=== PATIENT | female | born 1990 | race Two or more races ===

== ENCOUNTER 2021-11-18 11:56 | Outpatient (REF) | payer OTHER, SELFPAY ==
[2021-11-18 12:48] LABS: COVID-19 Test Negative (Negative)
== END 2021-11-18 11:57 | disposition home or self-care (01) ==
LOC: HO.LAB 11:56
PROVIDERS: Visit Provider Internal Medicine
DX: Z20.822 Contact with and (suspected) exposure to COVID-19 (principal)
CPT/HCPCS: 87635; C9803

== ENCOUNTER 2024-12-05 15:40 | Outpatient (REF) | payer SELFPAY ==
[2024-12-05 17:58] LABS: MANUAL DIFF FLAG NO
[2024-12-05 18:10] LABS: Basophils Percent Auto 0.4 % (0-2); Eosinophils Absolute Auto 0.2 X10*3/uL (0.0-0.4); Eosinophils Percent Auto 1.7 % (0-4); Hematocrit 38.9 % (37.0-47.0); Hemoglobin 12.8 g/dl (12.0-16.0); Imm Gran Abs Auto 0.04 X10*3/uL (0.00-0.03); Imm Gran Pct Auto 0.4 % (0.0-0.4); Lymphocytes Absolute Auto 2.7 X10*3/uL (1.2-4.9); Lymphocytes Percent Auto 25.9 % (20-40); Mean Corpuscular HGB Conc 32.9 g/dl (31.0-35.0); Mean Corpuscular Hemoglobin 28.8 pg (27.0-33.0); Mean Corpuscular Volume 87.6 fL (80.0-98.0); Mean Platelet Volume 10.4 fL (9.4-12.3); Monocytes Absolute Auto 0.7 X10*3/uL (0.1-1.2); Monocytes Percent Auto 6.9 % (2-11); Neutrophils Absolute Auto 6.7 x10*3/uL (2.0-8.3); Neutrophils Percent Auto 64.7 % (45-73); Platelet Count 353 X10*3/uL (160-400); Red Blood Count 4.44 X10*6/uL (4.20-5.50); White Blood Count 10.3 X10*3/uL (4.8-10.8)
[2024-12-05 18:42] LABS: Alanine Aminotransferase 39 U/L (0-31); Albumin Level 4.1 g/dL (3.5-5.0); Anion Gap 12 (12-20); Aspartate Amino Transferase 27 U/L (5-31); Bilirubin Total 0.3 mg/dL (0.0-1.0); Blood Urea Nitrogen 14 mg/dL (9-16); Carbon Dioxide 27 mmol/L (22-29); Chloride 105 mmol/L (96-108); Estimated Glomerular Filt Rate > 60; Glucose Random 102 mg/dL (60-115); Potassium 3.6 mmol/L (3.3-5.1); Sodium 140 mmol/L (135-145); Total Protein 7.8 g/dL (6.5-8.0)
[2024-12-05 18:47] LABS: Alkaline Phosphatase 34 U/L (39-117)
[2024-12-05 18:53] LABS: TSH reflex Free T4 1.91 uIU/mL (0.32-4.0)
[2024-12-06 07:48] LABS: Follicle Stimulating Hormone 0.7 mIU/mL; Lutenizing Hormone 3.3 mIU/mL; Prolactin 23.1 ng/mL
[2024-12-06 08:29] LABS: HBc Num1 0.21 S/CO (0.00-0.79); HBsAGNum1 0.47 S/CO (0.00-0.99); HIV AB/AG Nonreactive (Nonreactive); HIV Num 1 0.07 S/CO (0.00-0.99); Hepatitis A Antibody IgM 0.33 Index (0-0.79); Hepatitis B Core Antibody Nonreactive (Nonreactive); Hepatitis B Surface Antigen Negative (Negative); ~HepC Num1 0.77 S/CO (0.00-0.79); ~Hepatitis A Antibody IgM Nonreactive (Nonreactive); ~Hepatitis B Surface Antibody NONREACTIVE (Nonreactive); ~Hepatitis C Antibody Nonreactive (Nonreactive)
[2024-12-06 08:38] LABS: Syphilis Screen Nonreactive (Nonreactive)
[2024-12-06 11:49] LABS: CT PCR NOT DETECTED (Not Detect.); NG PCR NOT DETECTED (Not Detect.)
[2024-12-06 15:00] LABS: Bacterial Vaginosis PCR POSITIVE (Negative); Candida Group PCR NOT DETECTED (Not Detect); Candida glab krusei PCR NOT DETECTED (Not Detect); Trichomonas vaginalis PCR NOT DETECTED (Not Detect)
== END 2024-12-05 15:41 | disposition home or self-care (01) ==
LOC: HO.HHCLNP 15:40
PROVIDERS: Visit Provider Internal Medicine
DX: N80.9 Endometriosis, unspecified (principal); N91.2 Amenorrhea, unspecified; N97.0 Female infertility associated with anovulation
CPT/HCPCS: 36415; 80053; 81515; 83001; 83002; 84146; 84443; 85025; 86704; 86706; 86709; 86780; 86803; 87340; 87389; 87491; 87591

== ENCOUNTER 2024-12-20 15:38 | Outpatient (REF) | payer MEDICAID, OTHER, SELFPAY ==
--- NOTE | ~2024-12-20 | US_ITS ---
EXAMINATION: US PELVIS TRANSABDOMINAL AND TRANSVAGINAL HISTORY: amenorrhea/hx endometriosis COMPARISON: There are no prior studies for comparison. TECHNIQUE: Transabdominal and endovaginal real-time 2D chilel-scale ultrasound was performed. FINDINGS: Uterus: The uterus is normal in size, measuring 7.1 x 3.5 x 3.9 cm. Myometrium has a normal echotexture. No fibroids are identified. There are nabothian cysts in the cervix. Endometrium: The endometrial stripe measures 3 mm in thickness. Right ovary: The right ovary measures 1.9 x 1.0 x 1.4 cm. The right ovary is normal in size and echotexture. Left ovary: The left ovary measures 3.7 x 3.1 x 2.1 cm. There is a 3.0 x 2.9 x 1.7 cm left ovarian cyst. Pelvic fluid: There is a small amount of free fluid in the cul-de-sac.. US/US pelvic and transvaginal IMPRESSION: 3.0 x 2.9 x 1.7 cm left ovarian cyst. Otherwise unremarkable pelvic ultrasound. Electronically signed by: Kenn Rodriguez MD 12/21/2024 07:10 AM EDT
--- OUTSIDE RECORDS SUMMARY | 2024-12-20 18:56 | XMS_ITS | Encounter Summary ---
Author Organization [employer] Address [address] [place] [address] Care Team Providers Care Flying I Instructor Name Role Phone Unavailable Primary Care Provider Unavailabl e Encounter Details Date Type Department Care Team (Late st Contact Info) Description 12/06/2024 Telephone [facility] [address] [place], [place] [phone] Jazmín oNgueira MD [address] [place], [place] [phone] Social History Tobacco Use Types Packs/Day Years Used Date Smoking Tobacco: Never Passive Smoke Exposure: Never Smokeless Tobacco: Never Comments Unknown Sex and Gender Information Value Date Recorded Sex Assigned at Female 07/27/2023 10:54 AM EDT Legal Sex Female 10:53 AM EDT Gender Identity Female 07/27/2023 10:54 AM EDT Sexual Orientation Straight 07/27/2023 10 :54 AM EDT documented as of this encounter Miscellaneous Notes * Telephone Encounter - Lucille Reid RN - 12/06/2024 5:46 PM EST Telephone call to the pt regarding the following message from Dr. Nogueira : Vaginal swab from yesterday show BV. Since patient has had amenorrhea for some time now, please tell her that I will treat BV this time to see if he has anything to do with recurrent amenorrheic episodes. Tell her that this is not a STD, that it sometimes happens when the vaginal ph is altered by different conditions (abs use, UTIs, spermicide or vaginal douche use etc). I will follow- up with her at her upcoming appointment. Tell her that some of her hormone levels are abnormal as well, those that are related with ovulation so they are most likely the reason why she is probably not ovulating. Tell her that I will refer her to supervisor boarding for further evaluation and I will follow-up with her at her next visit. Pt verbalized understanding ,and agrees with the plan. documented in this encounter Plan of Treatment Upcoming Encounters Date Type Department Care Team (Late st Contact Info) Description 02/28/2025 9:15 AM EDT Office Visit [facility] [address] [place] [phone] Jazmín Nogueira MD [address] [place] [address] documented as of this encounter Visit Diagnoses Not on filedocumented in this encounter
--- OUTSIDE RECORDS SUMMARY | 2024-12-20 18:56 | XMS_ITS | Clinical Summary ---
Author Organization [employer] Address [address] [place] [address] Care Team Providers Care Acid Tender Name Role Phone Jazmín Nogueira MD Primary Care Provider + Allergies No known active allergies Medications multivitamin () 27-0.8 MG tablet Take 1 tablet by mouth Once per day. 30 tablet 11 12/05/2024 Active metroNIDAZOLE (Flagyl) 500 MG tablet Take 1 tablet (500 mg) by mouth 2 times daily for 7 days. 14 tablet 12/06/2024 Active Problems Problem Noted Date Diagnosed Date Endometriosis 12/05/2024 Assessment & Plan (12/05/2024 3:10 PM EST): Unclear diagnosis, patient never had laparoscopy. She will try to obtain records from previous treatment and follow-up with [employer]. Order CBC and labs and follow-up with your PCP DUB (dysfunctional uterine bleeding) 12/05/2024 Amenorrhea 12/05/2024 Assessment & Plan (12/05/2024 3:09 PM EST): test is negative. Space unclear if related to PCOS, she does not have any visualizing fissures. It could be related to endometriosis. Order labs and pelvic ultrasound and follow-up with a new PCP. I will obtain Pap smear report from dentistry done last month. Infertility associated with anovulation 12/05/19 Assessment & Plan (12/05/2024 3:10 PM EST): Ordered labs and pelvic ultrasound, may need referral to [employer]. Needs to follow-up with new PCP first Encounters Date Type Department Care Team Description 12/06/2024 Telephone [facility] [address] [place], [place] [phone] Jazmín Nogueira MD 12/06/2024 Orders Only [facility] [address] [place] [phone] Jazmín Nogueira MD Amenorrhea (Primary Dx); BV (bacterial vaginosis) 12/05/2024 2:40 PM EST Office Visit [facility] [address] [place] [phone] Jazmín Nogueira MD Endometriosis (Primary Dx); Amenorrhea; Infertility associated with anovulation from Last 3 Months Social History Tobacco Use Types Packs/Day Years Used Date Smoking Tobacco: Never Passive Smoke Exposure: Never Smokeless Tobacco: Never Tobacco Cessation:Counseling Given: Not Answered Comments Unknown Sex and Gender Information Value Date Recorded Sex Assigned at Female 07/27/2023 10:54 AM EDT Legal Sex Female 10:53 AM EDT Gender Identity Female 07/27/2023 10:54 AM EDT Sexual Orientation Straight 07/27/2023 10 :54 AM EDT Last Filed Vital Signs Vital Sign Reading Time Taken Comments Blood Pressure 122/83 12/05/2024 2:31 PM EST Pulse 73 12/05/2024 2:31 PM EST Temperature 36.7 ??C (98 ??F) 12/05/2024 2:31 PM EST Respiratory Rate 16 12/05/2024 2:31 PM EST Oxygen Saturation - - Inhaled Oxygen Concentration - - Weight 64.4 kg (142 lb) 12/05/2024 2:31 PM EST Height 142.2 cm (4' 8 ) 12/05/2024 2:31 PM EST Body Mass Index 31.84 12/05/2024 2:31 PM EST Plan of Treatment Upcoming Encounters Date Type Department Care Team (Late st Contact Info) Description 02/28/2025 9:15 AM EDT Office Visit [facility] [address] [place] [phone] Jazmín Nogueira MD [address] [place] [phone] Health Maintenance Due Date Last Done Comments Depression Screening 1992 SDOH Screening 1992 Alcohol/Substance Use Screening 2004 DTaP/Tdap/Td Vaccines (1 - Tdap) 2011 Hepatitis B Vaccines (1 of 3 - 19+ 3-dose series) 2011 Pap Smear 2013 Cervical Cancer Screening 2022 HPV/Cotest 2022 COVID-19 Vaccine (1 - 2023-2 5 season) 2024 Influenza Vaccine (#1) 2024 Family Planning (PISQ) 12/05/2025 12/05/2024 Tobacco Screening 12/05/2025 12/05/2024 Zoster Vaccines (1 of 2) 2042 RSV Patients and Pa tients Aged 60 years or older (1 - 1-dose 75+ series) 2067 HIV Screening Completed 12/05/2024 Hepatitis C Screening Completed 12/05/2024 HIB Vaccines Aged Out No longer eligi ble based on patient's age to complete this topic HPV Vaccines Aged Out No longer eligi ble based on patient's age to complete this topic Hepatitis A Vaccines Aged Out No long er eligible based on patient's age to complete this topic IPV Vaccines Aged Out No longer eligi ble based on patient's age to complete this topic Meningococcal Vaccine Aged Out No domenico christen eligible based on patient's age to complete this topic Pneumococcal Vaccine: Pediat rics (0 to 5 Years) and At-Risk Patients (6 to 49) Years) Aged Out No longer elig ible based on patient's age to complete this topic RSV under 20 months Aged Out No longe r eligible based on patient's age to complete this topic Rotavirus Vaccines Aged Out No longer eligible based on patient's age to complete this topic Procedures Procedure Name Priority Date/Time Associated Diagnosis Comments LH Routine 12/05/2024 3:44 PM EST Amenorrhea Infertility associated with anovulation FSH Routine 12/05/2024 3:44 PM EST Amenorrhea Infertility associated with anovulation PROLACTIN Routine 12/05/2024 3:44 PM EST Amenorrhea Infertility associated with anovulation TSH W/REFLEX TO FT4 Routine 12/05/2024 3 :44 PM EST Amenorrhea Infertility associated with anovulation SYPHILIS SCREEN Routine 12/05/2024 3:44 PM EST Infertility associated with anovulation HEPATITIS PANEL, GENERAL Routine 12/05/2024 3:44 PM EST Amenorrhea HIV 1/2 ANTIGEN/ANTIBODY, FOURTH GENERATION W/RFL Routine 12/05/2024 3:44 PM EST Amenorrhea COMPREHENSIVE METABOLIC PANEL Routine 12/05/2024 3:44 PM EST Endometriosis Amenorrhea CBC WITH AUTO DIFFERENTIAL Routine 12/05/2024 3:44 PM EST Endometriosis CHLAMYDIA/N. GONORRHOEAE RNA, TMA, UROGENITAL Routine 12/05/2024 3:05 PM EST Amenorrhea BACTERIAL VAGINOSIS PANEL Routine 12/05/2024 3:05 PM EST Amenorrhea POCT , URINE Routine 12/05/2024 3:01 PM EST Amenorrhea from Last 3 Months Results * Syphilis Screen (12/05/2024 3:44 PM EST) Syphilis Screen Nonreactive Nonreactive [facility] Blood 12/05/2024 3:44 PM EST 12/05/2024 5:51 PM EST us Jazmín Nogueira MD LAB BLOOD ORDERABLES Fin al Result [facility] [address] [place] [phone] * TSH with Reflex to Free T4 (12/05/2024 3:44 PM EST) TSH reflex Free T4 1.91 0.32 - 4.0 uIU/mL [facility] Blood 12/05/2024 3:44 PM EST 12/05/2024 5:51 PM EST Jazmín Nogueira MD LAB BLOOD ORDERABLES Fin al Result Performing Organization Address [facility] Co de Phone Number [facility] [address] [place] [phone] * Hepatitis Panel, General (12/05/2024 3:44 PM EST) [facility] Hepatitis A IgM Nonreactive Nonreactive [facility] Comment:IgM antibodies to MUSTAFA V not detected; does not exclude earlyacute or recovered HAV infection. ~Hepatitis B Surface Antibody NONREACTIVE Nonreactive [facility] Comment:Nonreactive: < 8.00 mIU/mL Hepatitis B Core Antibody Nonreactive Nonreactive [facility] Hepatitis C Antibody Nonreactive Nonreactive [facility] Comment:Antibodies to HCV no t detected; does not exclude early acuteHCV infection. Hepatitis B Surface Ag Negative Negative [facility] Blood 12/05/2024 3:44 PM EST 12/05/2024 5:51 PM EST Jazmín Nogueira MD LAB BLOOD ORDERABLES Fin al Result Performing Organization Address [facility] Co de Phone Number [facility] [address] [place] [phone] * (ABNORMAL) CBC auto differential (12/05/2024 3:44 PM EST) [facility] White Blood Count 10.3 4.8 - 10.8 X10*3/uL [facility] Red Blood Count 4.44 4.20 - 5.50 X10*6/uL [facility] Hemoglobin 12.8 12.0 - 16.0 g/dl [facility] Hematocrit 38.9 37.0 - 47.0 % [facility] Mean Corpuscular Volume 87.6 80.0 - 98.0 fL [facility] Mean Corpuscular Hemoglobin 28.8 27.0 - 33.0 pg [facility] Mean Corpuscular HGB Conc 32.9 31.0 - 35.0 g/dl [facility] Red Cell Distribution Width 13.0 11.0 - 16.0 % [facility] Platelet Count 353 160 - 400 X10*3/uL [facility] Mean Platelet Volume 10.4 9.4 - 12.3 fL [facility] Neutrophils Percent Auto 64.7 45 - 73 % [facility] Imm Gran Pct Auto 0.4 0.0 - 0.4 % [facility] Lymphocytes Percent Auto 25.9 20 - 40 % [facility] Monocytes Percent Auto 6.9 2 - 11 % [facility] Eosinophils Percent Auto 1.7 0 - 4 % [facility] Basophils Percent Auto 0.4 0 - 2 % [facility] NRBC Pct Auto 0.0 0.0 - 0.2 /100WBC [facility] Neutrophils Absolute Auto 6.7 2.0 - 8.3 x10*3/uL [facility] Imm Gran Abs Auto 0.04(H) 0.00 - 0.03 X10*3/uL [facility] Lymphocytes Absolute Auto 2.7 1.2 - 4.9 X10*3/uL [facility] Monocytes Absolute Auto 0.7 0.1 - 1.2 X10*3/uL [facility] Eosinophils Absolute Auto 0.2 0.0 - 0.4 X10*3/uL [facility] Basophils Absolute Auto 0.0 0.0 - 0.2 X10*3/uL [facility] NRBC Abs Auto 0.000 0.0 - 0.012 X10*3/uL [facility] Blood Venous blood specimen / Unknown 12/05/2024 3:44 PM EST 12/05/2024 5:51 PM EST us Jazmín Nogueira MD LAB BLOOD ORDERABLES Fin al Result [facility] [address] [place] [phone] * Prolactin (12/05/2024 3:44 PM EST) Prolactin 23.1 ng/mL [facility] Comment:Reference Range Fema les Non- 3.0-30.0 10.0-209.0 Postmenopausal 2.0-20.0THIS TEST WAS PERFORMED AT:[employer] [address] [employer] [place] [phone] ELMORE MD Blood Venous blood specimen / Unknown 12/05/2024 3:44 PM EST 12/05/2024 5:51 PM EST Jazmín Nogueira MD LAB BLOOD ORDERABLES Fin al Result Performing Organization Address [facility]/ZIP Co de Phone Number [facility] [address] [place] [phone] * HIV-1/2 Antigen and Antibodies, Fourth Generation, with Reflexes (12/05/2024 3:44 PM EST) HIV AB/AG Nonreactive Nonreactive [facility] Comment:HIV-1 p24 Ag and/or HIV-1/HIV-2 Ab not detected.A test result that is nonreactive does not exclude thepossibility of exposure to or infection with HIV-1 and/orHIV-2. Nonreactive results in this assay for individualswith prior exposure to HIV-1 and/or HIV-2 may be due toantigen and antibody levels that are below the limit ofdetection of this assay.[facility] [employer] HIV Ag/Ab Combo assay result andsupplemental assay results should be interpreted inconjunction with the patient's clinical presentation,history and other laboratory results. If the results areinconsistent with clinical evidence, additional testing issuggested to confirm the result. Blood Venous blood specimen / Unknown 12/05/2024 3:44 PM EST 12/05/2024 5:51 PM EST us Jazmín Nogueira MD LAB BLOOD ORDERABLES Fin al Result [facility] [address] [place] [phone] * LH (12/05/2024 3:44 PM EST) Lutenizing Hormone 3.3 mIU/mL [facility] Comment:Reference Range Foll icular Phase 1.9-12.5 Mid-Cycle Peak 8.7-76.3 Luteal Phase 0.5-16.9 Postmenopausal 10.0-54.7THIS TEST WAS PERFORMED AT:[facility] [address] [phone] ELMORE MD Blood Venous blood specimen / Unknown 12/05/2024 3:44 PM EST 12/05/2024 5:51 PM EST Jazmín Nogueira MD LAB BLOOD ORDERABLES Fin al Result Performing Organization Address [facility] Co ma Phone Number [facility] [address] [place] [phone] * (ABNORMAL) FSH (12/05/2024 3:44 PM EST) Follicle Stimulating Hormone 0.7(A) mIU/mL [facility] Comment:Reference Range Foll icular Phase 2.5-10.2 Mid-cycle Peak 3.1-17.7 Luteal Phase 1.5- 9.1 Postmenopausal 23.0-116.3THIS TEST WAS PERFORMED AT:[facility] [address] [phone] ELMORE MD Blood Venous blood specimen / Unknown 12/05/2024 3:44 PM EST 12/05/2024 5:51 PM EST Jazmín Nogueira MD LAB BLOOD ORDERABLES Fin al Result Performing Organization Address [facility]/ZIP Co de Phone Number [facility] [address] [place] [phone] * (ABNORMAL) Comprehensive Metabolic Panel (12/05/2024 3:44 PM EST) Sodium 140 135 - 145 mmol/L [facility] Potassium 3.6 3.3 - 5.1 mmol/L [facility] Chloride 105 96 - 108 mmol/L [facility] Carbon Dioxide 27 22 - 29 mmol/L [facility] Anion Gap 12 12 - 20 [facility] Urea Nitrogen (BUN) 14 9 - 16 mg/dL [facility] Creatinine, Serum 0.66 0.5 - 1.4 mg/dL [facility] Estimated Glomerular Filt Rate >60 [facility] Comment:Chronic Kidney Disea se: Estimated GFR < 60 mL/min/[id number] Kidney Disease: Estimated GFR < 15 mL/min/1.73m2 Glucose 102 60 - 115 mg/dL [facility] Calcium 9.0 8.4 - 10.2 mg/dL [facility] Bilirubin, Total 0.3 0.0 - 1.0 mg/dL [facility] Aspartate Amino Transferase 27 5 - 31 U/L [facility] Alanine Aminotransferase 39(H) 0 - 31 U/L [facility] Total Protein 7.8 6.5 - 8.0 g/dL [facility] Albumin Level 4.1 3.5 - 5.0 g/dL [facility] Alkaline Phosphatase 34(L) 39 - 117 U/L [facility] Blood Venous blood specimen / Unknown 12/05/2024 3:44 PM EST 12/05/2024 5:51 PM EST us Jazmín Nogueira MD LAB BLOOD ORDERABLES Fin al Result [facility] [address] [place] [phone] * (ABNORMAL) Bacterial Vaginosis (12/05/2024 3:05 PM EST) TRICHOMONAS VAGINALIS DETECTION BY PCR NOT DETECTED Not Detect [facility] BACTERIAL VAGINOSIS DETECTION BY PCR POSITIVE(A) Negative [facility] Comment:The BV organism targ ets of the Xpert Xpress MVP test can becommensal in women; Xpert Xpress MVP positive results forbacterial vaginosis should be considered in conjunction withother clinical and patient information to determine thedisease status. Organisms that are not detected by the XpertXpress MVP test have also been reported to be associatedwith BV and aerobic vaginitis.The Xpert Xpress MVP test performance has not been evaluatedin patients under the age of 14. VIRGINIE GROUP DETECTION BY PCR NOT DETECTED Not Detect [facility] Virginie glab krusei PCR NOT DETECTED Not Detect [facility] Swab Vaginal structure / Unknown 12/05/2024 3:05 PM EST 12/05/2024 4:22 PM EST us Jazmín Nogueira MD LAB MICROBIOLOGY - GENER AL ORDERABLES Final Result [facility] [address] [place] [phone] * Chlamydia/N. Gonorrhoeae RNA, TMA, Urogenitial (12/05/2024 3:05 PM EST) CT PCR NOT DETECTED Not Detect. [facility] Comment:A not detected test result does not exclude the possibilityof infection because test results can be affected byimproper specimen collection, concurrent antibiotic therapy,or the number of organisms in the specimen which may bebelow the sensitivity of the test. As with many diagnostictests, results from the Xpert CT/NG assay should beinterpreted in conjunction with other laboratory andclinical data available to the clinician.Xpert CT/NG performance has not been evaluated in patientsless than 14 years of age. The assay should not be used forthe evaluationof suspected sexual abuse or for other medico-legalindications. Additional testing is recommended in anycircumstance when false positive or false negative resultscould lead to adverse medical, social or psychologicalconsequences. NG PCR NOT DETECTED Not Detect. [facility] Comment:A not detected test result does not exclude the possibilityof infection because test results can be affected byimproper specimen collection, concurrent antibiotic therapy,or the number of organisms in the specimen which may bebelow the sensitivity of the test. As with many diagnostictests, results from the Xpert CT/NG assay should beinterpreted in conjunction with other laboratory andclinical data available to the clinician.Xpert CT/NG performance has not been evaluated in patientsless than 14 years of age. The assay should not be used forthe evaluationof suspected sexual abuse or for other medico-legalindications. Additional testing is recommended in anycircumstance when false positive or false negative resultscould lead to adverse medical, social or psychologicalconsequences. Swab (Vaginal Swab) 12/05/2024 3:05 PM EST 12/05/2024 4:22 PM EST Narrative [facility] - 12/06/2024 11:49 AM EST Vaginal Jazmín Nogueira MD LAB MICROBIOLOGY - GENER AL ORDERABLES Final Result Performing Organization Address City/State/[facility] Co de Phone Number [facility] [address] [place] [phone] * POCT , urine manually resulted (12/05/2024 3:01 PM EST) Preg Test, Ur Negative Negative, Indeterminate, None Detected, Invalid, Specimen unsatisfactory for evaluation, Weakly Positive Urine 12/05/2024 3:01 PM EST Jazmín Nogueira MD POINT OF CARE TEST ENTER /EDIT ORDERABLES Final Result from Last 3 Months Insurance [employer] [facility]SN FULL DENTAL - HSN FULL (MEDICAID) D[facility] MEDICAID LIMITED ADULT Care Teams Acid Tender Relationship Specialty Start Date End Date Jazmín Nogueira MD [address] [place] [phone] PCP - General Internal Medicine 12/09/24
--- OUTSIDE RECORDS SUMMARY | 2024-12-20 18:57 | XMS_ITS | Encounter Summary ---
Author Organization [employer] Address [address] [facility] [address] [place] [address] Care Team Providers Care Electric Powerline Examiner Name Role Phone Unavailable Primary Care Provider Unavailabl e Reason for Referral * Consultation (Routine) - Authorized Specialty Diagnoses / Procedures Referred By Contadali t Referred To Contact Obstetrics and Gynecology Diagnoses Amenorrhea Jazmín Nogueira MD [address] [place] [address] Phone: tel: fax: [facility] [address] [place], [place] Phone: tel: fax: Referral ID Status Reason Start Date Expiration Date Visits Requested Visits Authorized [id number] Authorized Specialty Services Required 12/06/2024 12/06/2025 1 1 Encounter Details Date Type Department Care Team (Late st Contact Info) Description 12/06/2024 Orders Only [facility] [address] [place] [phone] Jazmín Nogueira MD [address] [place], [place] [phone] Amenorrhea (Primary Dx); BV (bacterial vaginosis) Social History Tobacco Use Types Packs/Day Years Used Date Smoking Tobacco: Never Passive Smoke Exposure: Never Smokeless Tobacco: Never Comments Unknown Sex and Gender Information Value Date Recorded Sex Assigned at Female 07/27/2023 10:54 AM EDT Legal Sex Female 10:53 AM EDT Gender Identity Female 07/27/2023 10:54 AM EDT Sexual Orientation Straight 07/27/2023 10 :54 AM EDT documented as of this encounter Progress Notes * Jazmín Nogueira MD - 12/06/2024 4:38 PM EST 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, 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, 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[facility] documented in this encounter Plan of Treatment Upcoming Encounters Date Type Department Care Team (Late st Contact Info) Description 02/28/2025 9:15 AM EDT Office Visit [facility] [address] [place] [address] Jazmín Nogueira MD [address] [place] [phone] Scheduled Referrals Name Type Priority Associated Diagnoses Order Schedule Referral to Gynecology Outpatient Referral Routine Amenorrhea Expected: 12/06/2024 (Approximate), Expires: 12/06/2025 documented as of this encounter Visit Diagnoses Diagnosis Amenorrhea- Primary Absence of menstruation BV (bacterial vaginosis) Unspecified vaginitis and vulvovaginitis documented in this encounter
--- OUTSIDE RECORDS SUMMARY | 2024-12-20 18:57 | XMS_ITS | Encounter Summary ---
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 Scientist Name Role Phone Unavailable Primary Care Provider Unavailabl e Reason for Referral * Imaging (Routine) - Closed Specialty Diagnoses / Procedures Referred By Contac t Referred To Contact Radiology Diagnoses Endometriosis Amenorrhea Procedures US Pelvis Transvaginal Jazmín Nogueira MD [address] [place] [address] Phone: tel: fax: [address] Phone: tel: fax: Referral ID Status Reason Start Date Expiration Date Visits Re quested Visits Authorized [id number] Closed 12/05/2024 12/05/2025 1 1 * Imaging (Routine) - Closed Specialty Diagnoses / Procedures Referred By Contac t Referred To Contact Radiology Diagnoses Endometriosis Amenorrhea Procedures Us Pelvis complete Jazmín Nogueira MD [address] [place] [address] Phone: tel: fax: [address] Phone: tel: fax: Referral ID Status Reason Start Date Expiration Date Visits Re quested Visits Authorized [id number] Closed 12/05/2024 12/05/2025 1 1 Reason for Visit * Reason Comments Menstrual Problem Encounter Details Date Type Department Care Team (Latest Contact Info) Description 12/05/2024 2:40 PM EST Office Visit [facility] [address] [place] [address] Jazmín Nogueira MD [address] [place] [address] Endometriosis (Primary Dx); Amenorrhea; Infertility associated with anovulation Social History Tobacco Use Types Packs/Day Years [...] AM EDT documented as of this encounter Last Filed Vital Signs Vital Sign Reading [...] Mass Index 31.84 12/05/2024 2:31 PM EST documented in this encounter Progress Notes * Jazmín Nogueira MD - 12/05/2024 2:40 PM EST SUBJECTIVE: Jael Gates is a 34 y.o. 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 Denies recent illness, injury, or hospitalization. Patient here for new patient visit, she is concerned about amenorrhea for the past 3 months. PMHx: Endometriosis x 10+ y (no hx laparoscopy?), sp OCPs + other rx until 2019. She had had regular monthly menstrual bleedings since, until 06/2024. PSHx: None. FamHx: Father had ESRD/. Mother of liver Ca and DM. Has several siblings with hx DM. 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 Lives with her and her sister. She completed 8th grade then dropped out. Acute Concerns: Patient concerned regarding absence of menstrual bleeding since . She has occasional breast tenderness and pelvic pain that she relates to menstrual bleeding but has not had any recently. She denies vaginal discharge, regular pelvic pain, vaginal spotting, facial her or galactorrhea. She had PAP smear (Tapestry) on Oct was reportedly normal. She has history of endometriosis until 2 oh any 20 when she received treatment for x 6 months and started having irregular menstrual bleedings, last one June 2024. She has been with the same male partner for the past 14 years, did not use control and she has not gotten . She would like to get . Social History Social History Narrative Not on file Patient Active Problem List Diagnosis Endometriosis DUB (dysfunctional uterine bleeding) Amenorrhea Infertility associated with anovulation No family history on file. Review of Systems Constitutional: Negative for chills, fatigue and fever. HENT: Negative for congestion, ear pain, nosebleeds, rhinorrhea, sinus pressure, sore throat and trouble swallowing. Eyes: Negative for pain and discharge. Respiratory: Negative for cough, chest tightness and shortness of breath. Cardiovascular: Negative for chest pain, palpitations and leg swelling. Gastrointestinal: Negative for abdominal pain, blood in stool, constipation, diarrhea and nausea. Endocrine: Negative for polydipsia and polyuria. Genitourinary: Positive for menstrual problem. Negative for dysuria, frequency, genital sores, pelvic pain and vaginal discharge. Musculoskeletal: Negative for back pain and neck pain. Skin: Negative for rash. Allergic/Immunologic: Negative for environmental allergies. Neurological: Negative for dizziness, seizures, weakness, light-headedness and headaches. Hematological: Negative for adenopathy. Psychiatric/Behavioral: Negative for agitation, behavioral problems, self-injury and suicidal ideas. OBJECTIVE: Vitals: 12/05/24 1431 BP: 122/83 Pulse: 73 Resp: 16 Temp: 98 ??F (36.7 ??C) Physical Exam HENT: Right Ear: Tympanic membrane and ear canal normal. Left Ear: Tympanic membrane and ear canal normal. Mouth/Throat: Mouth: Mucous membranes are moist. Pharynx: No oropharyngeal exudate or posterior oropharyngeal erythema. Eyes: Pupils: Pupils are equal, round, and reactive to light. Cardiovascular: Rate and Rhythm: Regular rhythm. Pulses: Normal pulses. Heart sounds: Normal heart sounds. No murmur heard. Pulmonary: Breath sounds: Normal breath sounds. Abdominal: General: Bowel sounds are normal. Palpations: Abdomen is soft. Tenderness: There is no abdominal tenderness. Musculoskeletal: General: Normal range of motion. Cervical back: Neck supple. Skin: General: Skin is warm. Neurological: General: No focal deficit present. Mental Status: She is alert and oriented to person, place, and time. Psychiatric: Mood and Affect: Mood normal. Behavior: Behavior normal. Office Visit on 12/05/2024 Component Date Value Ref Range Status Preg Test, Ur 12/05/2024 Negative Negative, Indeterminate, None Detected, Invalid, Specimen unsatisfactory for evaluation, Weakly Positive Final Problem List Items Addressed This Visit Endometriosis - Primary Unclear diagnosis, patient never had laparoscopy. She will try to obtain records from previous treatment and follow-up with NURSE MONITORING. Order CBC and labs and follow-up with your PCP Relevant Orders CBC auto differential Comprehensive Metabolic Panel Us Pelvis complete US Pelvis Transvaginal Amenorrhea test is negative. Space unclear if related to PCOS, she does not have any visualizing fissures. It could be related to endometriosis. Order labs and pelvic ultrasound and follow-up with a new PCP. I will obtain Pap smear report from dentistry done last month. Relevant Orders POCT , urine manually resulted (Completed) Bacterial Vaginosis Chlamydia/N. Gonorrhoeae RNA, TMA, Urogenitial Bacterial Vaginosis Chlamydia/N. Gonorrhoeae RNA, TMA, Urogenitial Comprehensive Metabolic Panel HIV-1/2 Antigen and Antibodies, Fourth Generation, with Reflexes Hepatitis Panel, General TSH with Reflex to Free T4 Prolactin FSH LH Us Pelvis complete US Pelvis Transvaginal Infertility associated with anovulation Ordered labs and pelvic ultrasound, may need referral to NURSE MONITORING. Needs to follow-up with new PCP first Relevant Orders Syphilis Screen TSH with Reflex to Free T4 Prolactin FSH LH Follow Up: No current outpatient medications on file prior to visit. No current facility-administered medications on file prior to visit. documented in this encounter Miscellaneous Notes * Assessment & Plan Note - Jazmín Nogueira MD - 12/05/2024 3:10 PM EST Associated Problem(s): Endometriosis Unclear diagnosis, patient never had laparoscopy. She will try to obtain records from previous treatment and follow-up with NURSE MONITORING. Order CBC and labs and follow-up with your PCP * Assessment & Plan Note - Jazmín Nogueira MD - 12/05/2024 3:10 PM EST Associated Problem(s): Infertility associated with anovulation Ordered labs and pelvic ultrasound, may need referral to NURSE MONITORING. Needs to follow-up with new PCP first * Assessment & Plan Note - Jazmín Nogueira MD - 12/05/2024 3:09 PM EST Associated Problem(s): Amenorrhea test is negative. Space unclear if related to PCOS, she does not have any visualizing fissures. It could be related to endometriosis. Order labs and pelvic ultrasound and follow-up with a new PCP. I will obtain Pap smear report from dentistry done last month. * Result Encounter Note - Jazmín Nogueira MD - 12/05/2024 2:40 PM EST Vaginal swab from yesterday show BV. Since [...] use etc). I will follow- up with herat her upcoming appointment. Tell her that some of her hormone levels are abnormal as well, those that are related with ovulation so they are most likely the reason why she is probably not ovulating.Tell her that I will refer her to devulcanizer operator for further evaluation and I will follow-up with herat her next visit documented in this encounter Plan of Treatment Upcoming Encounters Date Type Department Care Team (Late st Contact Info) Description 02/28/2025 9:15 AM EDT Office Visit [facility] [address] [place] [address] Jazmín Nogueira MD [address] [place] [address] Scheduled Orders Name Type Priority Associated Diagnoses Orde r Schedule Chlamydia/N. Gonorrhoeae RNA, TMA, Urogenitial Microbiology Routine Amenorrhea Ordered: 12/05/2024 Bacterial Vaginosis Microbiology Routine Amenorrhea Expected: 12/05/2024 (Approximate), Expires: 12/05/2025 Us Pelvis complete Imaging Routine Endometriosis Amenorrhea Expected: 12/05/2024 (Approximate), Expires: 12/05/2025 US Pelvis Transvaginal Imaging Routine Endometriosis Amenorrhea Expected: 12/05/2024 (Approximate), Expires: 12/05/2025 documented as of this encounter Procedures Procedure Name Priority Date/Time Associated Diagnosis Comments SYPHILIS SCREEN Routine 12/05/2024 3:44 PM EST Infertility associated with anovulation TSH W/REFLEX TO FT4 Routine 12/05/2024 3 :44 PM EST Amenorrhea Infertility associated with anovulation HEPATITIS PANEL, GENERAL Routine 12/05/2024 3:44 PM EST Amenorrhea CBC WITH AUTO DIFFERENTIAL Routine 12/05/2024 3:44 PM EST Endometriosis PROLACTIN Routine 12/05/2024 3:44 PM EST Amenorrhea Infertility associated with anovulation HIV 1/2 ANTIGEN/ANTIBODY, FOURTH GENERATION W/RFL Routine 12/05/2024 3:44 PM EST Amenorrhea LH Routine 12/05/2024 3:44 PM EST Amenorrhea Infertility associated with anovulation FSH Routine 12/05/2024 3:44 PM EST Amenorrhea Infertility associated with anovulation COMPREHENSIVE METABOLIC PANEL Routine 12/05/2024 3:44 PM EST Endometriosis Amenorrhea BACTERIAL VAGINOSIS PANEL Routine 12/05/2024 3:05 PM EST Amenorrhea CHLAMYDIA/N. GONORRHOEAE RNA, TMA, UROGENITAL Routine 12/05/2024 3:05 PM EST Amenorrhea POCT , URINE Routine 12/05/2024 3:01 PM EST Amenorrhea documented in this encounter Results * LH (12/05/2024 3:44 PM EST) Lutenizing Hormone 3.3 mIU/mL [facility] Comment:Reference Range Fol licular Phase 1.9-12.5 Mid-Cycle Peak 8.7-76.3 Luteal Phase 0.5-16.9 Postmenopausal 10.0-54.7THIS TEST WAS PERFORMED AT:[employer] [address] [id number] ELMORE MD Blood Venous blood specimen / Unknown 12/05/2024 3:44 PM EST 12/05/2024 5:51 PM EST us Jazmín Nogueira MD LAB BLOOD ORDERABLES Fin al Result [facility] [address] [place] [phone] * (ABNORMAL) FSH (12/05/2024 3:44 PM EST) Follicle Stimulating Hormone 0.7(A) mIU/mL [facility] Comment:Reference Range Foll icular Phase 2.5-10.2 Mid-cycle Peak 3.1-17.7 Luteal Phase 1.5- 9.1 Postmenopausal 23.0-116.3THIS TEST WAS PERFORMED AT:[employer] [address] [id number] ELMORE MD Blood Venous blood specimen / Unknown 12/05/2024 3:44 PM EST 12/05/2024 5:51 PM EST Jazmín Nogueira MD LAB BLOOD ORDERABLES Fin al Result Performing Organization Address [facility] Co de Phone Number [facility] [address] [place] [phone] * Prolactin (12/05/2024 3:44 PM EST) Prolactin 23.1 ng/mL [facility] Comment:Reference Range Fema les Non- 3.0-30.0 10.0-209.0 Postmenopausal 2.0-20.0THIS TEST WAS PERFORMED AT:[employer] [address] [id number] ELMORE MD Blood Venous blood specimen / Unknown 12/05/2024 3:44 PM EST 12/05/2024 5:51 PM EST Jazmín Nogueira MD LAB BLOOD ORDERABLES Fin al Result Performing Organization Address [facility] de Phone Number [facility] [address] [place] [phone] * TSH with Reflex to Free T4 (12/05/2024 3:44 PM EST) TSH reflex Free T4 1.91 0.32 - 4.0 uIU/mL [facility] Blood 12/05/2024 3:44 PM EST 12/05/2024 5:51 PM EST Jazmín Nogueira MD LAB BLOOD ORDERABLES Fin al Result Performing Organization Address [facility] [address] [facility] Co de Phone Number [facility] [address] [place] [phone] * Syphilis Screen (12/05/2024 3:44 PM EST) Syphilis Screen Nonreactive Nonreactive [facility] Blood 12/05/2024 3:44 PM EST 12/05/2024 5:51 PM EST Jazmín Nogueira MD LAB BLOOD ORDERABLES Fin al Result Performing Organization Address [facility] [address] [facility] Co de Phone Number [facility] [address] [place] [phone] * Hepatitis Panel, General (12/05/2024 3:44 PM EST) Pathologist [facility] Hepatitis A IgM Nonreactive Nonreactive [facility] Comment:IgM antibodies to MUSTAFA V not detected; does not exclude earlyacute or recovered HAV infection. ~Hepatitis B Surface Antibody NONREACTIVE Nonreactive [facility] Comment:Nonreactive: < 8.00 mIU/mL Hepatitis B Core Antibody Nonreactive Nonreactive [facility] Hepatitis C Antibody Nonreactive Nonreactive [facility] Comment:Antibodies to HCV no t detected; does not exclude early acuteHCV infection. Hepatitis B Surface Ag Negative Negative [facility] Blood 12/05/2024 3:44 PM EST 12/05/2024 5:51 PM EST Jazmín Nogueira MD LAB BLOOD ORDERABLES Fin al Result Performing Organization Address [facility] [address] [facility] Co de Phone Number [facility] [address] [place] [phone] * HIV-1/2 Antigen and Antibodies, Fourth Generation, with Reflexes (12/05/2024 3:44 PM EST) Pathologist [facility] HIV AB/AG Nonreactive Nonreactive [facility] Comment:HIV-1 p24 Ag and/or HIV-1/HIV-2 Ab not detected.A test result that is nonreactive does not exclude thepossibility of exposure to or infection with HIV-1 and/orHIV-2. Nonreactive results in this assay for individualswith prior exposure to HIV-1 and/or HIV-2 may be due toantigen and antibody levels that are below the limit ofdetection of this assay.The [facility] HIV Ag/Ab Combo assay result andsupplemental assay results should be interpreted inconjunction with the patient's clinical presentation,history and other laboratory results. If the results areinconsistent with clinical evidence, additional testing issuggested to confirm the result. Blood Venous blood specimen / Unknown 12/05/2024 3:44 PM EST 12/05/2024 5:51 PM EST us Jazmín Nogueira MD LAB BLOOD ORDERABLES Fin al Result [facility] [address] [place], [place] [phone] * (ABNORMAL) Comprehensive Metabolic Panel (12/05/2024 3:44 PM EST) Sodium 140 135 - 145 mmol/L [facility] Potassium 3.6 3.3 - 5.1 mmol/L [facility] Chloride 105 96 - 108 mmol/L [facility] Carbon Dioxide 27 22 - 29 mmol/L [facility] Anion Gap 12 12 - 20 [facility] Urea Nitrogen (BUN) 14 9 - 16 mg/dL [facility] Creatinine, Serum 0.66 0.5 - 1.4 mg/dL [facility] Estimated Glomerular Filt Rate >60 [facility] Comment:Chronic Kidney Disea se: Estimated GFR < 60 mL/min/[id number] Kidney Disease: Estimated GFR < 15 mL/min/1.73m2 Glucose 102 60 - 115 mg/dL [facility] Calcium 9.0 8.4 - 10.2 mg/dL [facility] Bilirubin, Total 0.3 0.0 - 1.0 mg/dL [facility] Aspartate Amino Transferase 27 5 - 31 U/L [facility] Alanine Aminotransferase 39(H) 0 - 31 U/L [facility] Total Protein 7.8 6.5 - 8.0 g/dL [facility] Albumin Level 4.1 3.5 - 5.0 g/dL [facility] Alkaline Phosphatase 34(L) 39 - 117 U/L [facility] Blood Venous blood specimen / Unknown 12/05/2024 3:44 PM EST 12/05/2024 5:51 PM EST us Jazmín Nogueira MD LAB BLOOD ORDERABLES Fin al Result [facility] [address] [place], [place] [phone] * (ABNORMAL) CBC auto differential (12/05/2024 3:44 PM EST) White Blood Count 10.3 4.8 - 10.8 X10*3/uL [facility] Red Blood Count 4.44 4.20 - 5.50 X10*6/uL [facility] Hemoglobin 12.8 12.0 - 16.0 g/dl [facility] Hematocrit 38.9 37.0 - 47.0 % [facility] Mean Corpuscular Volume 87.6 80.0 - 98.0 fL [facility] Mean Corpuscular Hemoglobin 28.8 27.0 - 33.0 pg [facility] Mean Corpuscular HGB Conc 32.9 31.0 - 35.0 g/dl [facility] Red Cell Distribution Width 13.0 11.0 - 16.0 % [facility] Platelet Count 353 160 - 400 X10*3/uL [facility] Mean Platelet Volume 10.4 9.4 - 12.3 fL [facility] Neutrophils Percent Auto 64.7 45 - 73 % [facility] Imm Gran Pct Auto 0.4 0.0 - 0.4 % [facility] Lymphocytes Percent Auto 25.9 20 - 40 % [facility] Monocytes Percent Auto 6.9 2 - 11 % [facility] Eosinophils Percent Auto 1.7 0 - 4 % [facility] Basophils Percent Auto 0.4 0 - 2 % [facility] NRBC Pct Auto 0.0 0.0 - 0.2 /100WBC [facility] Neutrophils Absolute Auto 6.7 2.0 - 8.3 x10*3/uL [facility] Imm Gran Abs Auto 0.04(H) 0.00 - 0.03 X10*3/uL [facility] Lymphocytes Absolute Auto 2.7 1.2 - 4.9 X10*3/uL [facility] Monocytes Absolute Auto 0.7 0.1 - 1.2 X10*3/uL [facility] Eosinophils Absolute Auto 0.2 0.0 - 0.4 X10*3/uL [facility] Basophils Absolute Auto 0.0 0.0 - 0.2 X10*3/uL [facility] NRBC Abs Auto 0.000 0.0 - 0.012 X10*3/uL [facility] Blood Venous blood specimen / Unknown 12/05/2024 3:44 PM EST 12/05/2024 5:51 PM EST us Jazmín Nogueira MD LAB BLOOD ORDERABLES Fin al Result [facility] [address] [place] [phone] * Chlamydia/N. Gonorrhoeae RNA, TMA, Urogenitial (12/05/2024 3:05 PM EST) CT PCR NOT DETECTED Not Detect. [facility] Comment:A not detected test result does [...] psychologicalconsequences. NG PCR NOT DETECTED Not Detect. [facility] Comment:A not detected test result does [...] PM EST 12/05/2024 4:22 PM EST Narrative [facility] - 12/06/2024 11:49 AM EST Vaginal Jazmín Nogueira MD LAB MICROBIOLOGY - GENER AL ORDERABLES Final Result [facility] [address] [place] [phone] * (ABNORMAL) Bacterial Vaginosis (12/05/2024 3:05 PM EST) TRICHOMONAS VAGINALIS DETECTION BY PCR NOT DETECTED Not Detect [facility] BACTERIAL VAGINOSIS DETECTION BY PCR POSITIVE(A) Negative [facility] Comment:The BV organism targ ets of [...] DETECTION BY PCR NOT DETECTED Not Detect [facility] Virginie glab krusei PCR NOT DETECTED Not Detect [facility] Swab Vaginal structure / Unknown 12/05/2024 3:05 PM EST 12/05/2024 4:22 PM EST us Jazmín Nogueira MD LAB MICROBIOLOGY - GENER AL ORDERABLES Final Result [facility] [address] [place] [phone] * POCT , urine manually resulted (12/05/2024 3:01 PM EST) Preg Test, Ur Negative Negative, Indeterminate, None Detected, Invalid, Specimen unsatisfactory for evaluation, Weakly Positive Urine 12/05/2024 3:01 PM EST us Jazmín Nogueira MD POINT OF CARE TEST ENTER /EDIT ORDERABLES Final Result documented in this encounter Visit Diagnoses Diagnosis Endometriosis- Primary Endometriosis, site unspecified Amenorrhea Absence of menstruation Infertility associated with anovulation documented in this encounter
== END 2024-12-20 15:39 | disposition home or self-care (01) ==
LOC: HO.US 15:38
PROVIDERS: PCP Internal Medicine; Visit Provider Internal Medicine
DX: N91.2 Amenorrhea, unspecified (principal); N80.9 Endometriosis, unspecified
CPT/HCPCS: 76830; 76856

== ENCOUNTER → 2024-12-20 15:40 | Outpatient (BNV) | payer SELFPAY | PROVIDERS: PCP Internal Medicine; Visit Provider Radiology Diagnostic Radiology | DX: N91.2 Amenorrhea, unspecified (principal) | CPT/HCPCS: 76830; 76856 ==

== ENCOUNTER 2025-02-09 14:58 | Outpatient (REF) | payer MEDICAID, OTHER, SELFPAY ==
--- NOTE | ~2025-02-09 | US_ITS ---
EXAMINATION: US PELVIS TRANSABDOMINAL AND TRANSVAGINAL HISTORY: f/u left ovarian cyst, should be within 6 weeks from previous US. COMPARISON: Comparison is made with the prior examination dated 12/20/2024. TECHNIQUE: Transabdominal and endovaginal real-time 2D chilel-scale ultrasound was performed. FINDINGS: Uterus: The uterus is normal in size, measuring 6.9 x 3.7 x 5.0 cm. Myometrium has a normal echotexture. No fibroids are identified. Endometrium: The endometrial stripe measures 7 mm in thickness. Right ovary: The right ovary measures 2.8 x 1.3 x 2.1 cm. There is an irregularly-shaped cystic structure measuring 1.9 x 1.9 x 1.1 cm which may represent an involuting follicle. Left ovary: The left ovary measures 1.9 x 1.2 x 1.3 cm. The left ovary is normal in size and echotexture. The previously seen 3.0 cm cyst has resolved. Pelvic fluid: There is a small amount of free fluid in the cul-de-sac. US/US pelvic and transvaginal IMPRESSION: 1. Interval resolution of the previously seen 3.0 cm left ovarian cyst. 2. Probable 1.9 cm involuting right ovarian follicle. Electronically signed by: Kenn Rodriguez MD 02/10/2025 07:34 AM EDT
--- OUTSIDE RECORDS SUMMARY | 2025-02-09 16:56 | XMS_ITS | Clinical Summary ---
Author Organization [employer] Address [address] [facility] [address] [place] [address] Care Team Providers Care Register Clerk Name Role Phone Jazmín Nogueira MD Primary Care Provider + Allergies No known active allergies Medications multivitamin () 27-0.8 MG tablet Take 1 tablet by mouth Once per day. 30 tablet 11 12/05/2024 Active Active Problems Problem Noted Date Diagnosed Date Endometriosis 12/05/2024 Assessment & Plan (12/05/2024 3:10 PM EST): Unclear diagnosis, patient never had laparoscopy. She will try to obtain records from previous treatment and follow-up with [facility]. Order CBC and labs and follow-up with [...] and pelvic ultrasound, may need referral to [facility]. Needs to follow-up with new PCP first Encounters Date Type Department Care Team Description 01/03/2025 [facility] [address] [place], [place] [phone] Jazmín Nogueira MD 12/21/2024 Telephone [facility] [address] [place], [place] [phone] Jazmín Nogueira MD Results; Lab Orders 12/21/2024 Orders Only [address] [phone] Jazmín Nogueira MD Cyst of left ovary (Primary Dx) 12/06/2024 Telephone [facility] [address] [place] [phone] Jazmín Nogueira MD 12/06/2024 Orders Only [facility] [address] [place] [phone] Jazmín Nogueira MD Amenorrhea (Primary Dx); BV (bacterial vaginosis) 12/05/2024 2:40 PM EST Office Visit [facility] [address] [place] [phone] Jazmín Nogueira MD Endometriosis (Primary Dx); Amenorrhea; [...] Description 02/28/2025 9:15 AM EDT Office Visit [address] [place] [address] Jazmín Nogueira MD [address] [place] [address] Health Maintenance Due Date Last Done Comments [...] this topic Meningococcal Vaccine Aged Out No domeinco christen eligible based on patient's age to [...] Procedure Name Priority Date/Time Associated Diagnosis Comments US PELVIS TRANSVAGINAL Routine 4:12 PM EDT Endometriosis Amenorrhea LH Routine 12/05/2024 3:44 PM EST [...] Amenorrhea from Last 3 Months Results * US Pelvis Transvaginal (12/20/2024 4:12 PM EDT) Anatomical Region Laterality Modality Pelvis Ultrasound 12/20/2024 4:12 PM EDT Narrative 12/21/2024 7:13 AM EDT ? [facility] ?[address] ?[place] [address] ? Ultrasound Report ? Signed ? Patient: Matthias Gates,Jael I ?M ?? R#: [id number] ? : 1990 ?Acct:[id number] ? Age/Sex: 34 / F ?ADM Date: 12/20/24 ? Loc: HO.US ? Attending Dr: Jazmín Nogueira MD ? Ordering Physician: Jazmín Nogueira MD ?? Date of Service: 12/20/24 ?? Procedure(s): US pelvic and transvaginal ?? Accession Number(s): [id number] ? cc: Jazmín Nogueira MD ? EXAMINATION: ??US PELVIS TRANSABDOMINAL AND TRANSVAGINAL ? HISTORY: amenorrhea/hx endometriosis ? COMPARISON: There are no prior studies for comparison. ? TECHNIQUE: ? Transabdominal and endovaginal real-time 2D chilel-scale ultrasound was ?? performed. ? FINDINGS: ? Uterus: ??The uterus is normal in size, measuring 7.1 x 3.5 x 3.9 cm. ? Myometrium has a normal echotexture. ??No fibroids are identified. There ?? are nabothian cysts in the cervix. ? Endometrium: ??The endometrial stripe measures 3 mm in thickness. ? Right ovary: ??The right ovary measures 1.9 x 1.0 x 1.4 cm. ??The right ?? ovary is normal in size and echotexture. ? Left ovary: ?? The left ovary measures 3.7 x 3.1 x 2.1 cm. ??There is a ?? 3.0 x 2.9 x 1.7 cm left ovarian cyst. ? Pelvic fluid: There is a small amount of free fluid in the cul-de-sac.. ? US/US pelvic and transvaginal ?? IMPRESSION: ?? 3.0 x 2.9 x 1.7 cm left ovarian cyst. Otherwise unremarkable pelvic ?? ultrasound. ? Electronically signed by: ??Kenn Rodriguez MD ??12/21/2024 07:10 AM EDT ?? RP ? Dictated By: ?Kenn Rodriguez MD ? Signed By: ?<Electronically signed by Kenn Rodriguez MD in OV> ?12/21/24 0710 ? DD/ ? TD/TT: 12/20/24 1620 ? Assistant Center Manager: ? Procedure Note Donotyaroninterpreter, Image - 12/21/2024 [place] [address] Ultrasound Report Signed Patient: Jael Martell R#: [id number] : 1990Acct:[id number] Age/Sex: 34 / FADM Date: 12/20/24 Loc: HO.US Attending Dr: Jazmín Nogueira MD Ordering Physician: Jazmín Nogueira MD Date of Service: 12/20/24 Procedure(s): US pelvic and transvaginal Accession Number(s): [id number] cc: Jazmín Nogueira MD EXAMINATION: US PELVIS TRANSABDOMINAL AND TRANSVAGINAL HISTORY: amenorrhea/hx endometriosis COMPARISON: There are no prior studies for comparison. TECHNIQUE: Transabdominal and endovaginal real-time 2D chilel-scale ultrasound was performed. FINDINGS: Uterus: The uterus is normal in size, measuring 7.1 x 3.5 x 3.9 cm. Myometrium has a normal echotexture. No fibroids are identified. There are nabothian cysts in the cervix. Endometrium: The endometrial stripe measures 3 mm in thickness. Right ovary: The right ovary measures 1.9 x 1.0 x 1.4 cm. The right ovary is normal in size and echotexture. Left ovary: The left ovary measures 3.7 x 3.1 x 2.1 cm. There is a 3.0 x 2.9 x 1.7 cm left ovarian cyst. Pelvic fluid: There is a small amount of free fluid in the cul-de-sac.. US/US pelvic and transvaginal IMPRESSION: 3.0 x 2.9 x 1.7 cm left ovarian cyst. Otherwise unremarkable pelvic ultrasound. Electronically signed by: Kenn Rodriguez MD 12/21/2024 07:10 AM EDT RP Dictated By: Kenn Rodriguez MD Signed By: <Electronically signed by Kenn Rodriguez MD in OV> 12/21/24 0710 DD/ 1612 TD/TT: 12/20/24 1620 Assistant Center Manager: Jazmín Nogueira MD IMG US PROCEDURES Final Result * Syphilis Screen (12/05/2024 3:44 PM EST) Pathologist [facility] Syphilis Screen Nonreactive Nonreactive [facility] Blood 12/05/2024 3:44 PM EST 12/05/2024 5:51 PM EST Jazmín Nogueira MD LAB BLOOD ORDERABLES Fin al Result Performing Organization Address [facility]/ZIP Co de Phone Number [facility] [address] [place] [phone] * TSH with Reflex to Free T4 (12/05/2024 3:44 PM EST) [facility] TSH reflex Free T4 1.91 0.32 - 4.0 uIU/mL [facility] Blood 12/05/2024 3:44 PM EST 12/05/2024 5:51 PM EST Jazmín Nogueira MD LAB BLOOD ORDERABLES Fin al Result Performing Organization Address [facility] Co de Phone Number [facility] [address] [place] [phone] * Hepatitis Panel, General (12/05/2024 3:44 PM EST) Pathologist [facility] Hepatitis A IgM Nonreactive Nonreactive [facility] Comment:IgM antibodies to MUSTAFA V not detected; does not exclude earlyacute or recovered HAV infection. ~Hepatitis B Surface Antibody NONREACTIVE Nonreactive [facility] Comment:Nonreactive: < 8.00 mIU/mL Hepatitis B Core Antibody Nonreactive Nonreactive [facility] Hepatitis C Antibody Nonreactive Nonreactive [facility] Comment:Antibodies to HCV no t detected; does not exclude early acuteHCV infection. Hepatitis B Surface Ag Negative Negative [facility] Blood 12/05/2024 3:44 PM EST 12/05/2024 5:51 PM EST us Jazmín Nogueira MD LAB BLOOD ORDERABLES Fin al Result [facility] [address] [place] [phone] * (ABNORMAL) CBC auto differential (12/05/2024 3:44 PM EST) White Blood Count 10.3 4.8 - 10.8 X10*3/uL [facility] Red Blood Count 4.44 4.20 - 5.50 X10*6/uL [facility] Hemoglobin 12.8 12.0 - 16.0 g/dl [facility] Hematocrit 38.9 37.0 - 47.0 % [facility] Mean Corpuscular Volume 87.6 80.0 - 98.0 fL [facility] Mean Corpuscular Hemoglobin 28.8 27.0 - 33.0 pg [facility] Mean Corpuscular HGB Conc 32.9 31.0 - 35.0 g/dl [facility] Red Cell Distribution Width 13.0 11.0 - 16.0 % [facility] Platelet Count 353 160 - 400 X10*3/uL [facility] Mean Platelet Volume 10.4 9.4 - 12.3 fL [facility] Neutrophils Percent Auto 64.7 45 - 73 % [facility] Imm Gran Pct Auto 0.4 0.0 - 0.4 % [facility] Lymphocytes Percent Auto 25.9 20 - 40 % [facility] Monocytes Percent Auto 6.9 2 - 11 % [facility] Eosinophils Percent Auto 1.7 0 - 4 % [facility] Basophils Percent Auto 0.4 0 - 2 % [facility] NRBC Pct Auto 0.0 0.0 - 0.2 /100WBC [facility] Neutrophils Absolute Auto 6.7 2.0 - 8.3 x10*3/uL [facility] Imm Gran Abs Auto 0.04(H) 0.00 - 0.03 X10*3/uL [facility] Lymphocytes Absolute Auto 2.7 1.2 - 4.9 X10*3/uL [facility] Monocytes Absolute Auto 0.7 0.1 - 1.2 X10*3/uL [facility] Eosinophils Absolute Auto 0.2 0.0 - 0.4 X10*3/uL [facility] Basophils Absolute Auto 0.0 0.0 - 0.2 X10*3/uL [facility] NRBC Abs Auto 0.000 0.0 - 0.012 X10*3/uL [facility] Blood Venous blood specimen / Unknown 12/05/2024 3:44 PM EST 12/05/2024 5:51 PM EST Jazmín Nogueira MD LAB BLOOD ORDERABLES Fin al Result Performing Organization Address City/[facility] [[email or web address]] de Phone Number [facility] [address] [place] [phone] * Prolactin (12/05/2024 3:44 PM EST) Prolactin 23.1 ng/mL [facility] Comment:Reference Range Fema les Non- 3.0-30.0 10.0-209.0 Postmenopausal 2.0-20.0THIS TEST WAS PERFORMED AT:[email or web address] [address] [id number] ELMORE MD Blood Venous blood specimen / Unknown 12/05/2024 3:44 PM EST 12/05/2024 5:51 PM EST Jazmín Nogueira MD LAB BLOOD ORDERABLES Fin al Result [facility] [address] [place] [phone] * HIV-1/2 Antigen and Antibodies, Fourth Generation, with Reflexes (12/05/2024 3:44 PM EST) HIV AB/AG Nonreactive Nonreactive [facility] Comment:HIV-1 p24 Ag and/or HIV-1/HIV-2 Ab not detected.A test result that is nonreactive does not exclude thepossibility of exposure to or infection with HIV-1 and/orHIV-2. Nonreactive results in this assay for individualswith prior exposure to HIV-1 and/or HIV-2 may be due toantigen and antibody levels that are below the limit ofdetection of this assay.The [employer] HIV Ag/Ab Combo assay result andsupplemental assay results should be interpreted inconjunction with the patient's clinical presentation,history and other laboratory results. If the results areinconsistent with clinical evidence, additional testing issuggested to confirm the result. Blood Venous blood specimen / Unknown 12/05/2024 3:44 PM EST 12/05/2024 5:51 PM EST Jazmín Nogueira MD LAB BLOOD ORDERABLES [facility] al Result [facility] [address] [place] [phone] * LH (12/05/2024 3:44 PM EST) Pathologist [facility] Lutenizing Hormone 3.3 mIU/mL [facility] Comment:Reference Range Foll icular Phase 1.9-12.5 Mid-Cycle Peak 8.7-76.3 Luteal Phase 0.5-16.9 Postmenopausal 10.0-54.7THIS TEST WAS PERFORMED AT:[facility] [place] [id number] ELMORE MD Blood Venous blood specimen / Unknown 12/05/2024 3:44 PM EST 12/05/2024 5:51 PM EST Jazmín Nogueira MD LAB BLOOD ORDERABLES Fin al Result Performing Organization Address [facility] [[email or web address]] de Phone Number [facility] [address] [place] [phone] * (ABNORMAL) FSH (12/05/2024 3:44 PM EST) Follicle Stimulating Hormone 0.7(A) mIU/mL [facility] Comment:Reference Range Foll icular Phase 2.5-10.2 Mid-cycle Peak 3.1-17.7 Luteal Phase 1.5- 9.1 Postmenopausal 23.0-116.3THIS TEST WAS PERFORMED AT:[facility] [place] [id number] ELMORE MD Blood Venous blood specimen / Unknown 12/05/2024 3:44 PM EST 12/05/2024 5:51 PM EST Jazmín Nogueira MD LAB BLOOD ORDERABLES Fin al Result Performing Organization Address [facility] [[email or web address]] de Phone Number [facility] [address] [place] [phone] * (ABNORMAL) Comprehensive Metabolic Panel (12/05/2024 3:44 PM EST) Sodium 140 135 - 145 mmol/L [facility] Potassium 3.6 3.3 - 5.1 mmol/L [facility] Chloride 105 96 - 108 mmol/L [facility] Carbon Dioxide 27 22 - 29 mmol/L [facility] Anion Gap 12 12 - 20 [facility] Urea Nitrogen (BUN) 14 9 - 16 mg/dL [facility] Creatinine, Serum 0.66 0.5 - 1.4 mg/dL [facility] Estimated Glomerular Filt Rate >60 [facility] Comment:Chronic Kidney Disea se: Estimated GFR < 60 mL/min/1.71q6Cgkdhs Kidney Disease: Estimated GFR < 15 mL/min/1.73m2 Glucose 102 60 - 115 mg/dL [facility] Calcium 9.0 8.4 - 10.2 mg/dL [facility] Bilirubin, Total 0.3 0.0 - 1.0 mg/dL [facility] Aspartate Amino Transferase 27 5 - 31 U/L [facility] Alanine Aminotransferase 39(H) 0 - 31 U/L [facility] Total Protein 7.8 6.5 - 8.0 g/dL [facility] Albumin Level 4.1 3.5 - 5.0 g/dL [facility] Alkaline Phosphatase 34(L) 39 - 117 U/L [facility] Blood Venous blood specimen / Unknown 12/05/2024 3:44 PM EST 12/05/2024 5:51 PM EST Jazmín Nogueira MD LAB BLOOD ORDERABLES Fin al Result [facility] [address] [place] [phone] * (ABNORMAL) Bacterial Vaginosis (12/05/2024 3:05 PM EST) TRICHOMONAS VAGINALIS DETECTION BY PCR NOT DETECTED Not Detect [facility] BACTERIAL VAGINOSIS DETECTION BY PCR POSITIVE(A) Negative [facility] Comment:The BV organism targ ets of [...] DETECTION BY PCR NOT DETECTED Not Detect [facility] Virginie glab krusei PCR NOT DETECTED Not Detect [facility] Swab Vaginal structure / Unknown 12/05/2024 3:05 PM EST 12/05/2024 4:22 PM EST us Jazmín Nogueira MD LAB MICROBIOLOGY - GENER AL ORDERABLES Final Result [facility] [address] [place] [phone] * Chlamydia/N. Gonorrhoeae RNA, TMA, Urogenitial (12/05/2024 3:05 PM EST) CT PCR NOT DETECTED Not Detect. [facility] Comment:A not detected test result does [...] psychologicalconsequences. NG PCR NOT DETECTED Not Detect. [facility] Comment:A not detected test result does [...] PM EST 12/05/2024 4:22 PM EST Narrative [facility] - 12/06/2024 11:49 AM EST Vaginal us Jazmín Nogueira MD LAB MICROBIOLOGY - GENER AL ORDERABLES Final Result [facility] [address] [place] [phone] * POCT , urine manually resulted (12/05/2024 3:01 PM EST) Preg Test, Ur Negative Negative, Indeterminate, None Detected, Invalid, Specimen unsatisfactory for evaluation, Weakly Positive Urine 12/05/2024 3:01 PM EST us Jazmín Nogueira MD POINT OF CARE TEST ENTER /EDIT ORDERABLES Final Result from Last 3 Months Insurance [facility] - [facility] FULL (MEDICAID) [facility] Care Teams Register Clerk Relationship Specialty Start Date End Date Jazmín Nogueira MD [address] [place] [phone] PCP - General Internal Medicine 12/09/24
== END 2025-02-09 14:59 | disposition home or self-care (01) ==
LOC: HO.US 14:58
PROVIDERS: PCP Internal Medicine; Visit Provider Internal Medicine
DX: N83.202 Unspecified ovarian cyst, left side (principal)
CPT/HCPCS: 76830; 76856

== ENCOUNTER → 2025-02-09 15:02 | Outpatient (BNV) | payer SELFPAY | PROVIDERS: PCP Internal Medicine; Visit Provider Radiology Diagnostic Radiology | DX: N83.202 Unspecified ovarian cyst, left side (principal) | CPT/HCPCS: 76830; 76856 ==

== ENCOUNTER 2025-07-07 09:55 | Outpatient (REF) | payer MEDICAID, OTHER, SELFPAY ==
--- OUTSIDE RECORDS SUMMARY | 2025-07-07 09:00 | XMS_ITS | Encounter Summary ---
Author Organization [employer] Address [address] [place] [id number] Care Team Providers Care Guest Specialist Name Role Phone Jazmín Nogueira MD Primary Care Provider + Reason for Referral * Imaging (Urgent) - Authorized Specialty Diagnoses / Procedures Referred By Contac t Referred To Contact Radiology Diagnoses Other microscopic hematuria Epigastric pain Procedures US RENAL BI Jazmín Nogueira MD [address] [place] [address] Phone: tel: fax: [address] Phone: tel: fax: Referral ID Status Reason Start Date Expiration Date V isits Requested Visits Authorized [id number] Authorized 07/07/2025 07/07/2026 1 1 Encounter Details Date Type Department Care Team (Late st Contact Info) Description 07/07/2025 9:00 AM EDT Office Visit [facility] [address] [place], [place] [phone] Jazmín Nogueira MD [address] [place], [place] [phone] Other microscopic hematuria (Primary Dx); Gastroesophageal reflux disease, unspecified whether esophagitis present; Overweight; Adjustment disorder with anxiety; Dietary counseling; Exercise counseling; Epigastric pain; Infertility associated with anovulation; Encounter for immunization Social History Tobacco Use Types Packs/Day Years Used Date Smoking Tobacco: Never Passive Smoke Exposure: Never Smokeless Tobacco: Never Alcohol Use Standard Drinks/Week Comments Yes 0 (1 standard drink = 0.6 oz pur e alcohol) socially 1x/mo Alcohol Answer Date Recorded How often do you have a drink containing alcohol ? 1 02/28/2025 How many drinks containing a lcohol do you have on a typical day when you are drinking? 0 02/28/2025 How often do you have six or more drinks on one occasion? 0 02/28/2025 Depression Answer Date Recorded Patient Health Questionnaire-9 Score 24 07/07/2025 Patient Health Questionnaire-9 Score 24 07/07/2025 Last PHQ-9: Questionnaire Data Not on file 0 07/07/2025 Housing Stability Answer Date Recorded What is your housing situation today? I have jhon cortez 02/20/[address] you li ve. Do you have problems with any of the following? None of the above 02/20/2025 Food Insecurity Answer Date Recorded Within the past 12 months, y ou worried that your food would run out before you got money to buy more: Never True 02/20/2025 Within the past 12 months,th e food you bought just didn't last and you didn't have enough money to get more: Never True 09/2025 Transportation Answer Date Recorded In the past 12 months, has l ack of transportation kept you from medical appts, meetings, work or from getting things needed for daily living? No 02/20/2025 Utilities Answer Date Recorded In the past 12 months, has t he electric, gas, oil or water company threatened to shut off services in your home? No 02/20/2025 Depression Answer Date Recorded Patient Health Questionnaire-2 Score 6 07/07/2025 Internet Access Answer Date Recorded Internet Access Q1 Yes 02/20/2025 Internet Access Q2 Not on file 02/20/2025 Comments No Intention Date Recorded Wants to become (finding) 07/07 Sex and Gender Information Value Date Recorded Sex Assigned at Female 07/27/2023 10:54 AM EDT Legal Sex Female 10:53 AM EDT Gender Identity Female 07/27/2023 10:54 AM EDT Sexual Orientation Straight 07/27/2023 10 :54 AM EDT documented as of this encounter Last Filed Vital Signs Vital Sign Reading Time Taken Comments Blood Pressure 110/70 07/07/2025 9:12 AM EDT Pulse 73 07/07/2025 9:12 AM EDT Temperature 36.9 C (98.4 F) 07/07/2025 9:12 AM EDT Respiratory Rate 21 07/07/2025 9:12 AM EDT Oxygen Saturation 96% 07/07/2025 9:12 AM EDT Inhaled Oxygen Concentration - - Weight 64 kg (141 lb) 07/07/2025 9:12 AM EDT Height 147.3 cm (4' 10 ) 07/07/2025 9:12 AM EDT Body Mass Index 29.47 07/07/2025 9:12 AM EDT documented in this encounter Functional Status * Over the past 2 weeks, how often have you been bothered by any of the following problems? Question Answer Date of Assessment Author Patient Health Questionnaire -2 Score 6 07/07/2025 9:14 AM EDT Maryam Garcia MA * Little interest or pleasure in doing things Answer Date of Assessment Author Nearly every day 07/07/2025 9:14 AM EDT Maryam Garcia MA * Feeling down, depressed, or hopeless Answer Date of Assessment Author Nearly every day 07/07/2025 9:14 AM EDT Maryam Garcia MA * Trouble falling or staying asleep, or sleeping too much Answer Date of Assessment Author Nearly every day 07/07/2025 9:14 AM CHENCHOT Maryam Garcia MA * Feeling tired or having little energy Answer Date of Assessment Author Nearly every day 07/07/2025 9:14 AM CHENCHOT Maryam Garcia MA * Poor appetite or overeating Answer Date of Assessment Author Nearly every day 07/07/2025 9:14 AM EDT Maryam Garcia MA * Feeling bad about yourself - or that you are a failure or have let yourself or your family down Answer Date of Assessment Author Nearly every day 07/07/2025 9:14 AM CHENCHOT Maryam Garcia MA * Trouble concentrating on things, such as reading the newspaper or watching television Answer Date of Assessment Author Nearly every day 07/07/2025 9:14 AM EDT Maryam Garcia MA * Moving or speaking so slowly that other people could have noticed? Or the opposite - being so fidgety or restless that you have been moving around a lot more than usual. Answer Date of Assessment Author Nearly every day 07/07/2025 9:14 AM CHENCHOT Maryam Garcia MA * Thoughts that you would be better off or hurting yourself in some way Answer Date of Assessment Author Not at all 07/07/2025 9:14 AM EDT Swati Garcia MA * Patient Health Questionnaire-9 Score Answer Date of Assessment Author 24 07/07/2025 9:14 AM EDT Swati Garcia MA * How difficult have these problems made it for you to do your work, take care of things at home, or get along with other people? Answer Date of Assessment Author Somewhat difficult 07/07/2025 9:14 AM EDT Maryam Garcia MA * Over the last 2 weeks, how often have you been bothered by any of the following problems? Question Answer Date of Assessment Author Feeling nervous, anxious, or on edge 0 07/07/2025 9:15 AM EDT Maryam Garcia MA Not being able to stop or co ntrol worrying 0 07/07/2025 9:15 AM EDT Maryam Garcia MA Worrying too much about diff erent things 0 07/07/2025 9:15 AM EDT Maryam Garcia MA Trouble relaxing 3 07/07/2025 9:15 AM EDT Maryam Fernandez MA Being so restless that it is hard to sit still 0 07/07/2025 9:15 AM CHENCHOT Maryam Garcia MA Becoming easily annoyed or irritable 3 07/07/2025 9:15 AM EDT Maryam Garcia MA Feeling afraid as if somethi ng awful might happen 0 07/07/2025 9:15 AM CHENCHOT Maryam Garcia MA MUSA-7 Total Score 6 07/07/2025 9:15 AM CHENCHOT Maryam Garcia MA documented as of this encounter Miscellaneous Notes * Assessment & Plan Note - Jazmín Nogueira MD - 07/07/2025 9:42 AM EDT Associated Problem(s): Infertility associated with anovulation Labs and pelvic ultrasound were fairly normal, she got her previous back with Provera by PROPERTY CLAIMS MANAGER. Patient will continue will follow-up with PROPERTY CLAIMS MANAGER, desires . * Assessment & Plan Note - Jazmín Nogueira MD - 07/07/2025 9:41 AM EDT Associated Problem(s): Other microscopic hematuria Given associated GI symptoms, I will rule out kidney stones. Order renal ultrasound Advised to increase p.o. fluid intake * Assessment & Plan Note - Jazmín Nogueira MD - 07/07/2025 9:41 AM EDT Associated Problem(s): Gastroesophageal reflux disease Unclear if he was triggered by food or a GI bug. Will order H. pylori and will continue omeprazole on empty stomach x 1 month Advised to avoid greasy and high calorie meals, sodas and alcohol, advised to walk at least 50 minutes after meal and work on weight reduction. documented in this encounter Plan of Treatment Scheduled Orders Name Type Priority Associated Diagnoses Orde r Schedule US RENAL BI Imaging Urgent Other microscopic hematuria Epigastric pain Expected: 07/07/2025 (Approximate), Expires: 07/07/2026 Helicobacter pylori Antigen, EIA, Stool Lab Routine Gastroesophageal reflux disease, unspecified whether esophagitis present Expected: 07/07/2025, Expires: 07/07/2026 documented as of this encounter Procedures Procedure Name Priority Date/Time Associated Diagnosis Comments POCT , URINE Routine 07/07/2025 9:58 AM EDT Other microscopic hematuria Infertility associated with anovulation POCT URINALYSIS DIPSTICK Routine 07/07/2025 9:52 AM EDT Other microscopic hematuria Infertility associated with anovulation documented in this encounter Results * (ABNORMAL) POCT Urine (07/07/2025 9:58 AM EDT) Preg Test, Ur Positive (A) Negative, Indeterminate, None Detected, Invalid, Specimen unsatisfactory for evaluation, Weakly Positive, 2+ QC Media Lot # [id number] Lot# Expiration Date [id number] Urine 07/07/2025 9:5 8 AM EDT Jazmín Nogueira MD POINT OF CARE TEST ENTER /EDIT ORDERABLES Final Result * (ABNORMAL) POCT Urinalysis (07/07/2025 9:52 AM EDT) Color, UA Yellow Clarity, UA Clear Glucose, UA Negative Bilirubin, UA Negative Ketones, UA Negative Spec Grav, UA 1.010 Blood, UA Positive(A) Negative, None Detected Comment:Trace-lysed pH, UA 6.0 Protein, UA Negative Urobilinogen, UA 0.2 Leukocytes, UA Negative Negative, Rare, Trace Nitrite, UA Negative Negative, None Detected QC Media Lot # [id number] Lot# Expiration Date ,[id number] Urine 07/07/2025 9:52 AM EDT Jazmín Nogueira MD POINT OF CARE TEST ENTER /EDIT ORDERABLES Final Result documented in this encounter Visit Diagnoses Diagnosis Other microscopic hematuria- Primary Gastroesophageal reflux disease, unspecified whether esophagitis present Overweight Adjustment disorder with anxiety Dietary counseling Dietary surveillance and counseling Exercise counseling Epigastric pain Abdominal pain, epigastric Infertility associated with anovulation Encounter for immunization documented in this encounter Additional Health Concerns Assessment Noted Time PHQ-9 Depression Total Score: 24 025 9:14 AM EDT documented as of this encounter Care Teams Guest Specialist Relationship Specialty Start Date End Date Jazmín Nogueira MD [address] [place] [id number] PCP - General Internal Medicine 12/09/24 documented as of this encounter
--- OUTSIDE RECORDS SUMMARY | 2025-07-07 11:08 | XMS_ITS | Clinical Summary ---
Author Organization [employer] Address [address] [facility] 7t [place] [address] Care Team Providers Care Wire Spooler Name Role Phone Jazmín Nogueira MD Primary Care Provider + Allergies No known active allergies Medications multivitamin () 27-0.8 MG tablet Take 1 tablet by mouth Once per day. 30 tablet 11 5 Active medroxyPROGEST ERone (Provera) 10 MG tablet Take 10 mg by mouth Once per day. 5 Active acetaminophen (Tylenol Extra Strength) 500 MG tablet Take 1 tablet (500 mg) by mouth every 6 (six) hours if needed for mild pain. 120 tablet 5 025 Active Omeprazole 20 MG tablet delayed-releas e Take 1 tablet (20 mg) by mouth before breakfast. 30 tablet 5 025 Active Omeprazole 20 MG tablet delayed-releas e Take 1 tablet (20 mg) by mouth before breakfast. 30 tablet 5 025 Discontinued(Re order (will not trigger notification to Pharmacy)) Active Problems Problem Noted Date Diagnosed Date Other microscopic hematuria 07/07/2025 Assessment & Plan (07/07/2025 9:41 AM EDT): Given associated GI symptoms, I will rule out kidney stones. Order renal ultrasound Advised to increase p.o. fluid intake Overweight 07/07/2025 Adjustment disorder with anxiety 07/07/2025 Gastroesophageal reflux disease 02/28/2025 Assessment & Plan (07/07/2025 9:41 AM EDT): Unclear if he was triggered by food or a GI bug. Will order H. pylori and will continue omeprazole on empty stomach x 1 month Advised to avoid greasy and high calorie meals, sodas and alcohol, advised to walk at least 50 minutes after meal and work on weight reduction. Assessment & Plan (02/28/2025 9:37 AM EDT): Advised to avoid greasy and high carb meals, sodas and alcohol. Walk for at least 15 min after meals Advised re weight reduction, will use Omeprazole x 1mo Follow-up in 3 months, consider H. pylori or additional workup if symptoms do not resolve. Decreased sex drive 02/28/2025 Assessment & Plan (02/28/2025 9:23 AM EDT): It could be related to anovulatory cycles? Early menopause? She's been referred to [facility] has appt on 04/03 Consider HRT if she doesn't plan a Endometriosis 12/05/2024 Assessment & Plan (12/05/2024 3:10 PM EST): Unclear diagnosis, patient never had laparoscopy. She will try to obtain records from previous treatment and follow-up with DESIGN PRINTING MACHINE SETTER. Order CBC and labs and follow-up with your PCP DUB (dysfunctional uterine bleeding) 12/05/2024 Amenorrhea 12/05/2024 Assessment & Plan (02/28/2025 9:29 AM EDT): test is negative Unclear if related to early menopause/?ovarian failure (low FSH?) or PCOS. FU with DESIGN PRINTING MACHINE SETTER next month Assessment & Plan (12/05/2024 3:09 PM EST): test is negative. Space unclear if related to PCOS, she does not have any visualizing fissures. It could be related to endometriosis. Order labs and pelvic ultrasound and follow-up with a new PCP. I will obtain Pap smear report from dentistry done last month. Infertility associated with anovulation 12/05/19 Assessment & Plan (07/07/2025 9:42 AM EDT): Labs and pelvic ultrasound were fairly normal, she got her previous back with Provera by DESIGN PRINTING MACHINE SETTER. Patient will continue will follow-up with DESIGN PRINTING MACHINE SETTER, desires . Assessment & Plan (12/05/2024 3:10 PM EST): Ordered labs and pelvic ultrasound, may need referral to DESIGN PRINTING MACHINE SETTER. Needs to follow-up with new PCP first Encounters Date Type Department Care Team Description 07/07/2025 9:00 AM EDT Office Visit [address] [address] Jazmín Nogueira MD Other microscopic hematuria (Primary Dx); Gastroesophageal reflux disease, unspecified whether esophagitis present; Overweight; Adjustment disorder with anxiety; Dietary counseling; Exercise counseling; Epigastric pain; Infertility associated with anovulation; Encounter for immunization 07/07/2025 Travel 07/06/[address] [address] Jazmín Nogueira MD chart prep 06/29/2025 Patient Outreach [address] [address] Jazmín Nogueira MD Pre-visit Planning (SDOH screening completed on 02/20/2025) 04/25/[address] [address] Jazmín Nogueira MD Nurse Triage 04/24/[address] [address] Jazmín Nogueira MD June recall from Last 3 Months Immunizations Immunization Administration Dates Next Due HepB-CpG 07/07/2025 Tdap 07/07/2025 Social History Tobacco Use Types Packs/Day Years Used Date Smoking Tobacco: Never Passive Smoke Exposure: Never Smokeless Tobacco: Never Tobacco Cessation:Counseling Given: Not Answered Alcohol Use Standard Drinks/Week Comments Yes 0 [...] Mass Index 29.47 07/07/2025 9:12 AM EDT Plan of Treatment Health Maintenance Due Date Last Done Comments HPV Vaccines (1 - 3-dose series) 2007 Pap Smear 2013 Cervical Cancer Screening 2022 HPV/Cotest 2022 COVID-19 Vaccine (1 - 2023-2 5 season) 2025 Influenza Vaccine (#1) 2025 Hepatitis B Vaccines (2 of 2 - CpG 2-dose series) 08/04/2025 07/07/2025 Depression Monitoring 01/04/2026 07/07/2025 , 07/07/2025 SDOH Screening 02/20/2026 02/20/2025 Alcohol/Substance Use Screening 02/28/2026 02/28/2025 Disability Screening 02/28/2026 02/28/2025 Family Planning (PISQ) 07/07/2026 07/07/2025 Tobacco Screening 07/07/2026 07/07/2025 DTaP/Tdap/Td Vaccines (2 - T d or Tdap) 07/07/2035 07/07/2025 Zoster Vaccines (1 of 2) 2042 RSV Patients and Patients Aged 60 years or older (1 - [...] patient's age to complete this topic Meningococcal B Vaccine Aged Out No l onger eligible based on patient's age to complete this topic Meningococcal Vaccine Aged Out No domenico christen eligible based on patient's age to complete this topic Pneumococcal Vaccine: Pediatrics (0 to 5 Years) and At-Risk Patients (6 to 49) Years Aged Out No longer eligible b ased on patient's age to complete this topic [...] Other microscopic hematuria Infertility associated with anovulation HEPATITIS PANEL, GENERAL Routine 12/05/2024 3:44 PM EST Amenorrhea HIV 1/2 ANTIGEN/ANTIBODY, FOURTH GENERATION W/RFL Routine 12/05/2024 3:44 PM EST Amenorrhea from Last 3 Months or Most Recently Relevant to Health Maintenance Results * (ABNORMAL) POCT Urine (07/07/2025 9:58 AM EDT) Preg Test, Ur Positive (A) Negative, Indeterminate, None Detected, Invalid, Specimen unsatisfactory for evaluation, Weakly Positive, 2+ QC Media Lot # [id number] Lot# Expiration Date ,0 Urine 07/07/2025 9:58 AM EDT Jazmín Nogueira [...] Media Lot # [id number] Lot# Expiration Date ,026 Urine 07/07/2025 9:52 AM EDT Jazmín Nogueira MD POINT OF CARE TEST ENTER /EDIT ORDERABLES Final Result * Hepatitis Panel, General (12/05/2024 3:44 PM EST) Hepatitis A IgM Nonreactive Nonreactive [facility] Comment:IgM antibodies to MUSTAFA V not detected; does not exclude earlyacute or recovered HAV infection. ~Hepatitis B Surface Antibody NONREACTIVE Nonreactive [facility] Comment:Nonreactive: < 8.00 mIU/mL Hepatitis B Core Antibody Nonreactive Nonreactive [facility] Hepatitis C Antibody Nonreactive Nonreactive [facility] Comment:Antibodies to HCV no t detected; does not exclude early acuteHCV infection. Hepatitis B Surface Ag Negative Negative [facility] Blood 12/05/2024 3:44 PM EST 12/05/2024 5:51 PM EST us Jazmín Nogueira MD LAB BLOOD ORDERABLES Fin al Result [facility] [address] [place] [phone] * HIV-1/2 Antigen and Antibodies, Fourth Generation, with Reflexes (12/05/2024 3:44 PM EST) HIV AB/AG Nonreactive Nonreactive [facility] Comment:HIV-1 p24 Ag and/or HIV-1/HIV-2 Ab not detected.A test result that is nonreactive does not exclude thepossibility of exposure to or infection with HIV-1 and/orHIV-2. Nonreactive results in this assay for individualswith prior exposure to HIV-1 and/or HIV-2 may be due toantigen and antibody levels that are below the limit ofdetection of this assay.The Echograph HIV Ag/Ab Combo assay result andsupplemental assay results should be interpreted inconjunction with the patient's clinical presentation,history and other laboratory results. If the results areinconsistent with clinical evidence, additional testing issuggested to confirm the result. Blood Venous blood specimen / Unknown 12/05/2024 3:44 PM EST 12/05/2024 5:51 PM EST us Jazmín Nogueira MD LAB BLOOD ORDERABLES Fin al Result [facility] [address] [place], [place] [phone] from Last 3 Months or Most Recently Relevant to Health Maintenance Insurance [facility] HSN FULL DENTAL - HSN FULL (MEDICAID) DENTAL-[facility] [employer] ADULT Care Teams Wire Spooler Relationship Specialty Start Date End Date Jazmín Nogueira MD [address] [place] [phone] PCP - General Internal Medicine 12/09/24
--- OUTSIDE RECORDS SUMMARY | 2025-07-07 11:08 | XMS_ITS | Encounter Summary ---
Author Organization [employer] Address [address] [place] [address] Care Team Providers Care Resolution Specialist Name Role Phone Jazmín Nogueira MD Primary Care Provider + Encounter Details Date Type Department Care Team (Latest Contact Info) Description 07/07/2025 Travel Social History Tobacco Use Types Packs/Day Years [...] Q2 Not on file 02/20/2025 Comments No Sex and Gender Information Value Date Recorded Sex Assigned at Female 07/27/2023 10:54 AM EDT Legal Sex Female 10:53 AM EDT Gender Identity Female 07/27/2023 10:54 AM EDT Sexual Orientation Straight 07/27/2023 10 :54 AM EDT documented as of this encounter Functional Status * Over the [...] 9:14 AM Maryam Soriano MA * Feeling down, depressed, or hopeless Answer Date of Assessment Author Nearly every day 07/07/2025 9:14 AM CHENCHOT Maryam Garcia MA * Trouble falling or staying asleep, or sleeping too much Answer Date of Assessment Author Nearly every day 07/07/2025 9:14 AM Maryam Soriano MA * Feeling tired or having little energy Answer Date of Assessment Author Nearly every day 07/07/2025 9:14 AM Maryam Soriano MA * Poor appetite or overeating Answer Date of Assessment Author Nearly every day 07/07/2025 9:14 AM CHENCHOT Maryam Garcia MA * Feeling bad about [...] annoyed or irritable 3 07/07/2025 9:15 AM Maryam Soriano MA Feeling afraid as if somethi ng awful might happen 0 07/07/2025 9:15 AM Maryam Soriano MA MUSA-7 Total Score 6 07/07/2025 9:15 AM Maryam Soriano MA documented as of this encounter Plan of Treatment Not on file documented as of this encounter Visit Diagnoses Not on filedocumented in this encounter Additional Health Concerns Assessment Noted Time PHQ-9 Depression Total Score: 24 025 9:14 AM EDT documented as of this encounter Care Teams Resolution Specialist Relationship Specialty Start Date End Date Jazmín Nogueira MD [address] [place] [address] PCP - General Internal Medicine 12/09/24 documented as of this encounter
--- OUTSIDE RECORDS SUMMARY | 2025-07-07 11:08 | XMS_ITS | Encounter Summary ---
Author Organization [employer] Address [address] [address] [facility] [address] [place] [address] Care Team Providers Care Fence Making Machine Operator Name Role Phone Jazmín Nogueira MD Primary Care Provider + Reason for Visit * Reason Onset Date Comments chart prep 07/06/2025 Encounter Details Date Type Department Care Team (Late st Contact Info) Description 07/06/2025 Telephone [facility] [address] [place] [address] Jazmín Nogueira MD [address] [place] [address] chart prep Social History Tobacco Use Types Packs/Day Years [...] encounter Miscellaneous Notes * Telephone Encounter - Alta Miranda MA - 07/06/2025 10:55 AM EDT Chart Prep Labs: done Images: not done Referrals: complete Vaccines due: Flu, Hep B, HPV, and DTAP Screenings: pap smear Overdue care gaps: PHQ-9 and MUSA-7 documented in this encounter Plan of Treatment Not on file documented as of this encounter Visit Diagnoses Not on filedocumented in this encounter Additional Health Concerns Assessment Noted Time PHQ-9 Depression Total Score: 15 025 9:59 AM EDT documented as of this encounter Care Teams Fence Making Machine Operator Relationship Specialty Start Date End Date Jazmín Nogueira MD [address] [place] [phone] PCP - General Internal Medicine 12/09/24 documented as of this encounter
--- OUTSIDE RECORDS SUMMARY | 2025-07-07 11:08 | XMS_ITS | Clinical Summary ---
Author Organization [facility] Address [address] [place] [address] Care Team Providers Care Towel Sewer Name Role Phone Jazmín Nogueira Primary Care Provider [phone] Allergies No known active allergies Medications medroxyPROGESTER one (PROVERA) 10 mg tabletIndication s:Secondary amenorrhea Take 1 tablet (10 mg total) by mouth once a day for 10 days. 10 tablet 04/03/2025 Active vitamin ( PLUS) 27 mg iron- 1 mg tablet Take 1 tablet by mouth once a day. Active Encounters Date Type Department Care Team Description 05/23/2025 10:15 AM EDT Office Visit [facility] Obstetrics and Gynecology [address] [place] [phone] Chargeback Specialist: Tara Hooks NP Encounter for preconception consultation (Primary Dx) from Last 3 Months Family History Medical History Relation Name Comments Liver cancer Mother Breast cancer Neg Hx Ovarian cancer Neg Hx Uterine cancer Neg Hx Relation Name Status Comments Mother Social History Tobacco Use Types Packs/Day Years Used Date Smoking Tobacco: Never Smokeless Tobacco: Never Tobacco Cessation:Counseling Given: Not Answered Alcohol Use Standard Drinks/Week Comments Not Currently 0 (1 standard drink = 0.6 oz pur e alcohol) Comments Unknown Sex and Gender Information Value Date Recorded Sex Assigned at Female 12/15/2024 11:08 AM EST Legal Sex Female 6:05 PM EST Gender Identity Not on file Sexual Orientation Not on file Last Filed Vital Signs Vital Sign Reading Time Taken Comments Blood Pressure 118/70 05/23/2025 9:44 AM EDT Pulse - - Temperature - - Respiratory Rate - - Oxygen Saturation - - Inhaled Oxygen Concentration - - Weight 64 kg (141 lb) 05/23/2025 9:44 AM EDT Height - - Body Mass Index - - Plan of Treatment Health Maintenance Due Date Last Done Comments Cervical Cancer Screening 1992 HPV and Pap Smear 1992 Hepatitis C Screening 1992 Pap Smear 1992 Varicella Vaccines (1 of 2 - 13+ 2-dose series) 2005 Hepatitis B Vaccines (1 of 3 - 19+ 3-dose series) 2011 DTaP,Tdap,and Td Vaccines (1 - Tdap) 2014 Alcohol/Substance Use Screening 10/12/2024 Depression Screening and Follow-Up 10/12/2024 Social Drivers of Health Annual Screening 10/12/2024 COVID-19 Vaccine (1 - 2023-2 5 season) 2025 Influenza Vaccine (#1) 2025 RSV Vaccine (60+ years old and patients) (1 - 1-dose 75+ series) 2067 HIV Screening Completed 12/05/2024, 12/05/2024 Pneumococcal Vaccine: Pediatric (0-5 Years) and At-Risk Patients (6-50 Years) Aged Out No longer eligible based on patient's age to complete this topic Insurance [facility] HS/FREE CARE Care Teams Towel Sewer Relationship Specialty Start Date End Date Jazmín Nogueira Maria [address] [place] [phone] PCP - General Internal Medicine 12/12/24
== END 2025-07-07 09:56 | disposition home or self-care (01) ==
LOC: HO.HHCL 09:55
PROVIDERS: PCP Internal Medicine; Visit Provider Internal Medicine
DX: Z13.89 Encounter for screening for other disorder (principal)

== ENCOUNTER 2025-07-10 11:50 | Outpatient (REF) | payer MEDICAID, OTHER, SELFPAY | END 2025-07-10 11:51 | disposition home or self-care (01) | LOC: HO.HHCLNP 11:50 | PROVIDERS: Visit Provider Internal Medicine | DX: K21.9 Gastro-esophageal reflux disease without esophagitis (principal) | CPT/HCPCS: 87338 ==

== ENCOUNTER 2025-07-10 12:26 | Outpatient (REF) | payer MEDICAID, OTHER, SELFPAY ==
--- OUTSIDE RECORDS SUMMARY | 2025-07-07 09:00 | XMS_ITS | Encounter Summary ---
Author Organization [employer] Address [address] [place] [address] Care Team Providers Care School Bus Attendant Name Role Phone Jazmín Nogueira MD Primary Care Provider + Reason for Referral * Imaging (Urgent) - Authorized Specialty Diagnoses / Procedures Referred By Contac t Referred To Contact Radiology Diagnoses Other microscopic hematuria Epigastric pain Procedures US RENAL BI Jazmín Nogueira MD [address] [place] [address] Phone: tel: fax: [address] Phone: tel: fax: Referral ID Status Reason Start Date Expiration Date V isits Requested Visits Authorized [id number] Authorized 07/07/2025 07/07/2026 1 1 Encounter Details Date Type Department Care Team (Late st Contact Info) Description 07/07/2025 9:00 AM EDT Office Visit [facility] [address], [place] [phone] Jazmín Nogueira MD [address] [place], [place] [phone] Other microscopic hematuria (Primary Dx); Gastroesophageal reflux [...] is your housing situation today? I have john cortez 02/20/[address] you [...] got her previous back with Provera by BICYCLE SERVICE TECHNICIAN. Patient will continue will follow-up with BICYCLE SERVICE TECHNICIAN, desires . * Assessment & Plan Note [...] documented as of this encounter Care Teams School Bus Attendant Relationship Specialty Start Date End Date Jazmín Nogueira MD [address] [place] [phone] PCP - General Internal Medicine 12/09/24 documented as of this encounter
--- NOTE | ~2025-07-10 | US_ITS ---
EXAMINATION: US KIDNEY BILATERAL HISTORY: HEMATURIA TECHNIQUE: Real-time grayscale ultrasound imaging of the kidneys was performed and images were reviewed. COMPARISON: There are no prior studies available for comparison. FINDINGS: Right kidney: The right kidney measures 9.8 x 3.8 x 4.8 cm. Renal parenchymal echotexture and thickness are normal. There are no masses. There is no hydronephrosis or renal calculi. Left Kidney: The left kidney measures 10.0 x 4.5 x 4.2 cm. Renal parenchymal echotexture and thickness are normal. There are no masses. There is no hydronephrosis or renal calculi. US/US renal BI IMPRESSION: Unremarkable renal ultrasound. Electronically signed by: Kenn Rodriguez MD 07/10/2025 12:55 PM EDT
--- OUTSIDE RECORDS SUMMARY | 2025-07-10 13:39 | XMS_ITS | Encounter Summary ---
Author Organization [email or web address] Address [address] [facility] [facility] [address] [place] [address] Care Team Providers Care Wool Hat Forming Machine Tender Name Role Phone Jazmín Nogueira MD [...] your housing situation today? I have jhon sing 02/20/[address] you li [...] documented as of this encounter Care Teams Wool Hat Forming Machine Tender Relationship Specialty Start Date End Date Jazmín Nogueira MD [address] [place] [address] PCP - General Internal Medicine 12/09/24 documented as of this encounter
--- OUTSIDE RECORDS SUMMARY | 2025-07-10 13:39 | XMS_ITS | Clinical Summary ---
Author Organization [employer] Address [address] [facility] 7t [place] [address] Care Team Providers Care Permanent Mold Supervisor Name Role Phone Jazmín Nogueira MD Primary [...] records from previous treatment and follow-up with CODING SPECIALIST. Order CBC and labs and follow-up with your PCP DUB (dysfunctional uterine bleeding) 12/05/2024 Amenorrhea 12/05/2024 Assessment & Plan (02/28/2025 9:29 AM EDT): test is negative Unclear if related to early menopause/?ovarian failure (low FSH?) or PCOS. FU with CODING SPECIALIST next month Assessment & Plan (12/05/2024 3:09 [...] got her previous back with Provera by CODING SPECIALIST. Patient will continue will follow-up with CODING SPECIALIST, desires . Assessment & Plan (12/05/2024 3:10 PM EST): Ordered labs and pelvic ultrasound, may need referral to CODING SPECIALIST. Needs to follow-up with new PCP first Encounters Date Type Department Care Team Description 07/10/2025 Orders Only [address] [address] Jazmín Nogueira MD 07/07/2025 9:00 AM EDT Office Visit [address] [address] Jazmín Nogueira MD Other microscopic hematuria (Primary Dx); Gastroesophageal reflux disease, unspecified whether esophagitis present; Overweight; Adjustment disorder with anxiety; Dietary counseling; Exercise counseling; Epigastric pain; Infertility associated with anovulation; Encounter for immunization 07/07/2025 Travel 07/06/[address] [address] Jazmín Nogueira MD chart prep 06/29/2025 Patient Outreach [address] [address] Jazmín Nogueira MD Pre-visit Planning (SDOH screening completed on 02/20/2025) 04/25/[address] [address] Jazmín Nogueira MD Nurse Triage 04/24/[address] [address] Jazmín Nogueira MD June recall from Last [...] Name Priority Date/Time Associated Diagnosis Comments US RENAL COMPLETE Routine 07/10/2025 12: 39 PM EDT POCT , URINE Routine 07/07/2025 9:58 AM [...] Recently Relevant to Health Maintenance Results * US Renal Complete (07/10/2025 12:39 PM EDT) Anatomical Region Laterality Modality Kidney Ultrasound 07/10/2025 12:3 9 PM EDT Narrative 07/10/2025 12:59 PM EDT [place] [address] Ultrasound Report Signed Patient: Jael Martell#: [id number] : 1990 Acct:[id number] Age/Sex: 35 / F ADM Date: 07/10/25 Loc: HO.US Attending Dr: Jazmín Nogueira MD Ordering Physician: Jazmín Nogueira MD Date of Service: 07/10/25 Procedure(s): US renal BI Accession Number(s): [id number] cc: Jazmín Nogueira MD Reason for Exam: HEMATURIA EXAMINATION: US KIDNEY BILATERAL HISTORY: HEMATURIA TECHNIQUE: Real-time grayscale ultrasound imaging of the kidneys was performed and images were reviewed. COMPARISON: There are no prior studies available for comparison. FINDINGS: Right kidney: The right kidney measures 9.8 x 3.8 x 4.8 cm. Renal parenchymal echotexture and thickness are normal. There are no masses. There is no hydronephrosis or renal calculi. Left Kidney: The left kidney measures 10.0 x 4.5 x 4.2 cm. Renal parenchymal echotexture and thickness are normal. There are no masses. There is no hydronephrosis or renal calculi. US/US renal BI IMPRESSION: Unremarkable renal ultrasound. Electronically signed by: Kenn Rodriguez MD 07/10/2025 12:55 PM EDT RP Dictated By: Kenn Rodriguez MD Signed By: <Electronically signed by Kenn Rodriguez MD in OV> 07/10/25 1255 DD/ 1239 TD/TT: 07/10/25 1242 Investment Underwriter: Procedure Note Donotuseinterpreter, Image - 07/10/2025 [place] [address] Ultrasound Report Signed Patient: Jael Martell R#: [id number] : 1990Acct:[id number] Age/Sex: 35 / FADM Date: 07/10/25 Loc: . Attending Dr: Jazmín Nogueira MD Ordering Physician: Jazmín Nogueira MD Date of Service: 07/10/25 Procedure(s): US renal BI Accession Number(s): [id number] cc: Jazmín Nogueira MD Reason for Exam: HEMATURIA EXAMINATION: US KIDNEY BILATERAL HISTORY: HEMATURIA TECHNIQUE: Real-time grayscale ultrasound imaging of the kidneys was performed and images were reviewed. COMPARISON: There are no prior studies available for comparison. FINDINGS: Right kidney: The right kidney measures 9.8 x 3.8 x 4.8 cm. Renal parenchymal echotexture and thickness are normal. There are no masses. There is no hydronephrosis or renal calculi. Left Kidney: The left kidney measures 10.0 x 4.5 x 4.2 cm. Renal parenchymal echotexture and thickness are normal. There are no masses. There is no hydronephrosis or renal calculi. US/US renal BI IMPRESSION: Unremarkable renal ultrasound. Electronically signed by: Kenn Rodriguez MD 07/10/2025 12:55 PM EDT RP Dictated By: Kenn Rodriguez MD Signed By: <Electronically signed by Kenn Rodriguez MD in OV> 07/10/25 1255 DD/ 1239 TD/TT: 07/10/25 1242 Investment Underwriter: Result [facility] Jazmín Nogueira MD IMG US PROCEDURES Final Result * (ABNORMAL) POCT Urine (07/07/2025 9:58 AM EDT) Preg Test, Ur Positive (A) Negative, Indeterminate, None Detected, Invalid, Specimen unsatisfactory for evaluation, Weakly Positive, 2+ QC Media Lot # [id number] Lot# Expiration Date ,0 26 Urine 07/07/2025 9:58 AM EDT Result [facility] Jazmín Nogueira MD POINT OF CARE TEST [...] Media Lot # [id number] Lot# Expiration Date 302,026 Urine 07/07/2025 9:52 AM EDT Result [facility] Jazmín Nogueira MD POINT OF CARE TEST ENTER /EDIT ORDERABLES Final Result * Hepatitis Panel, General (12/05/2024 3:44 PM EST) Hepatitis A IgM Nonreactive Nonreactive [facility] Comment:IgM antibodies to MUSTAFA V not detected; does not exclude earlyacute or recovered HAV infection. ~Hepatitis B Surface Antibody NONREACTIVE Nonreactive [facility] Comment:Nonreactive: < 8.00 mIU/mL Hepatitis B Core Antibody Nonreactive Nonreactive [facility] Hepatitis C Antibody Nonreactive Nonreactive [facility] Comment:Antibodies to HCV no t detected; does not exclude early acuteHCV infection. Hepatitis B Surface Ag Negative Negative [facility] Blood 12/05/2024 3:44 PM EST 12/05/2024 5:51 PM EST us Jazmín Nogueira MD LAB BLOOD ORDERABLES Fin al Result Performing Organization Address [facility] Co de Phone Number [facility] [address] [place] [phone] * HIV-1/2 Antigen and Antibodies, Fourth Generation, with Reflexes (12/05/2024 3:44 PM EST) [facility] HIV AB/AG Nonreactive Nonreactive [facility] Comment:HIV-1 p24 Ag and/or HIV-1/HIV-2 Ab not detected.A test result that is nonreactive does not exclude thepossibility of exposure to or infection with HIV-1 and/orHIV-2. Nonreactive results in this assay for individualswith prior exposure to HIV-1 and/or HIV-2 may be due toantigen and antibody levels that are below the limit ofdetection of this assay.The [employer] HIV Ag/Ab Combo assay result andsupplemental assay results should be interpreted inconjunction with the patient's clinical presentation,history and other laboratory results. If the results areinconsistent with clinical evidence, additional testing issuggested to confirm the result. Blood Venous blood specimen / Unknown 12/05/2024 3:44 PM EST 12/05/2024 5:51 PM EST us Jazmín Nogueira MD LAB BLOOD ORDERABLES Fin al Result Performing Organization Address [facility]/ZIP Co de Phone Number [facility] [address] [place] [phone] from Last 3 Months or Most Recently Relevant to Health Maintenance Insurance [facility] HSN FULL DENTAL - HSN FULL (MEDICAID) DENTAL-[facility] MEDICAID LIMITED ADULT Care Teams Permanent Mold Supervisor Relationship Specialty Start Date End Date Jazmín Nogueira MD [address] [place] [phone] PCP - General Internal Medicine 12/09/24
--- OUTSIDE RECORDS SUMMARY | 2025-07-10 13:39 | XMS_ITS | Encounter Summary ---
Author Organization [employer] Address [address] [facility] [address] [place] [address] Care Team Providers Care Orthotic Finish Grinding Technician Name Role Phone Jazmín Nogueira MD Primary Care Provider + Reason for Visit * Reason Onset Date Comments chart prep 07/06/2025 Encounter Details Date Type Department Care Team (Late st Contact Info) Description 07/06/2025 Telephone [facility] MEDICINE [address] [place] [address] Jazmín Nogueira MD [address] [place] [address] chart prep Social History Tobacco Use Types [...] documented as of this encounter Care Teams Orthotic Finish Grinding Technician Relationship Specialty Start Date End Date Jazmín Nogueira MD [address] [place] [phone] PCP - General Internal Medicine 12/09/24 documented as of this encounter
--- OUTSIDE RECORDS SUMMARY | 2025-07-10 13:39 | XMS_ITS | Encounter Summary ---
Author Organization [employer] Address [address] [place] [address] Care Team Providers Care Finished Hardware Erector Name Role Phone Jazmín Nogueira MD Primary Care Provider + Encounter Details Date Type Department Care Team (Late st Contact Info) Description 07/10/2025 Orders Only [facility] MEDICINE [address] [place], [place] [phone] Jazmín Nogueira MD [address] [place], [place] [phone] Social History Tobacco Use Types Packs/Day Years [...] AM EDT documented as of this encounter Plan of Treatment Not on file documented as of this encounter Procedures Procedure Name Priority Date/Time Associated Diagnosis Comments US RENAL COMPLETE Routine 07/10/2025 12: 39 PM EDT documented in this encounter Results * US Renal Complete (07/10/2025 12:39 PM EDT) Anatomical Region Laterality Modality Kidney Ultrasound 07/10/2025 12:3 9 PM EDT Narrative 07/10/2025 12:59 PM EDT [place] [address] Ultrasound Report Signed Patient: Jael Martell Candi#: [id number] : 1990 Acct:[id number] Age/Sex: 35 / F ADM Date: 07/10/25 Loc: HO.US Attending Dr: Jazmín Nogueira MD Ordering Physician: Jazmín Nogueira MD Date of Service: 07/10/25 Procedure(s): US renal BI Accession Number(s): [id number] cc: Jazmín Nogueira MD Reason for Exam: [...] 07/10/25 1255 DD/ 1239 TD/TT: 07/10/25 1242 Tax Assistant: Procedure Note Donotuseinterpreter, Image - 07/10/2025 [place] [address] Ultrasound Report Signed Patient: Jael Martell R#: [id number] : 1990Acct:[id number] Age/Sex: 35 / FADM Date: 07/10/25 Loc: .US Attending Dr: Jazmín Nogueira MD Ordering Physician: Jazmín Nogueira MD Date of Service: 07/10/25 Procedure(s): US renal BI Accession Number(s): [id number] cc: Jazmín Nogueira MD Reason for Exam: [...] 07/10/25 1255 DD/ 1239 TD/TT: 07/10/25 1242 Tax Assistant: us Jazmín Nogueira MD IMG US PROCEDURES Final Result documented in this encounter Visit Diagnoses Not on filedocumented in this encounter Additional Health Concerns Assessment Noted Time PHQ-9 Depression Total Score: 24 025 9:14 AM EDT documented as of this encounter Care Teams Finished Hardware Erector Relationship Specialty Start Date End Date Jazmín Nogueira MD [address] [place] [phone] PCP - General Internal Medicine 12/09/24 documented as of this encounter
== END 2025-07-10 12:27 | disposition home or self-care (01) ==
LOC: HO.US 12:26
PROVIDERS: PCP Internal Medicine; Visit Provider Internal Medicine
DX: R31.29 Other microscopic hematuria (principal)
CPT/HCPCS: 76775

== ENCOUNTER → 2025-07-10 12:39 | Outpatient (BNV) | payer MEDICAID, SELFPAY | PROVIDERS: PCP Internal Medicine; Visit Provider Radiology Diagnostic Radiology | DX: R31.9 Hematuria, unspecified (principal) | CPT/HCPCS: 76775 ==

== ENCOUNTER 2025-07-12 15:04 | Outpatient (REF) | payer MEDICAID, OTHER, SELFPAY ==
--- OUTSIDE RECORDS SUMMARY | 2025-07-07 09:00 | XMS_ITS | Encounter Summary ---
Author Organization [employer] Address [address] [facility] [address] [place] [address] Care Team Providers Care Electronic Gluing Machine Operator Name Role Phone Jazmín Nogueira MD Primary Care Provider + Reason for Referral * Consultation (Routine) - Authorized Specialty Diagnoses / Procedures Referred By Ramon hernandez Referred To Contact Behavioral Health Diagnoses Adjustment disorder with anxiety Jazmín Nogueira MD [address] [place] [address] Phone: tel: fax: Referral ID Status Reason Start Date Expiration Date Visits Requested Visits Authorized [id number] Authorized Specialty Services Required 07/12/2025 07/12/2026 1 1 * Imaging (Urgent) - Closed Specialty Diagnoses / Procedures Referred By Ramon hernandez Referred To Contact Radiology Diagnoses Other microscopic hematuria Epigastric pain Procedures US RENAL BI Jazmín Nogueira MD [address] [place] [address] Phone: tel: fax: [address] Phone: tel: fax: Referral ID Status Reason Start Date Expiration Date Visits Re quested Visits Authorized [id number] Closed 07/07/2025 07/07/2026 1 1 Encounter Details Date Type Department Care Team (Late st Contact Info) Description 07/07/2025 9:00 AM EDT Office Visit [facility] [address] [place] [address] Jazmín Nogueira MD [address] [place] [address] Other microscopic hematuria (Primary Dx); Gastroesophageal reflux disease, unspecified whether esophagitis present; Adjustment disorder with anxiety; Dietary counseling; Exercise counseling; Epigastric pain; Infertility associated with anovulation; Encounter for immunization; Less than 8 weeks gestation of Social History Tobacco Use Types Packs/Day Years [...] your housing situation today? I have jhon dana 02/20/[address] you li [...] AM EDT Maryam Garcia MA * Feeling tired or having little energy Answer Date of Assessment Author Nearly every day 07/07/2025 9:14 AM EDT Maryam Garcia MA * Poor appetite or overeating Answer Date of Assessment Author Nearly every day 07/07/2025 9:14 AM Maryam Soriano MA * Feeling bad about yourself - or that you are a failure or have let yourself or your family down Answer Date of Assessment Author Nearly every day 07/07/2025 9:14 AM Maryam Soriano MA * Trouble concentrating on things, such as reading the newspaper or watching television Answer Date of Assessment Author Nearly every day 07/07/2025 9:14 AM Maryam Soriano MA * Moving or speaking so slowly that other people could have noticed? Or the opposite - being so fidgety or restless that you have been moving around a lot more than usual. Answer Date of Assessment Author Nearly every day 07/07/2025 9:14 AM Maryam Soriano MA * Thoughts that you would be better off or hurting yourself in some way Answer Date of Assessment Author Not at all 07/07/2025 9:14 AM Swati Soriano MA * Patient Health Questionnaire-9 Score Answer Date of Assessment Author 24 07/07/2025 9:14 AM Swati Soriano MA * How difficult have these problems made it for you to do your work, take care of things at home, or get along with other people? Answer Date of Assessment Author Somewhat difficult 07/07/2025 9:14 AM Maryam Soriano MA * Over the last 2 weeks, how often have you been bothered by any of the following problems? Question Answer Date of Assessment Author Feeling nervous, anxious, or on edge 0 07/07/2025 9:15 AM Maryam Soriano MA Not being able to stop or co ntrol worrying 0 07/07/2025 9:15 AM Maryam Soriano MA Worrying too much about diff erent things 0 07/07/2025 9:15 AM Maryam Soriano MA Trouble relaxing 3 07/07/2025 9:15 AM Maryam Cid MA Being so restless that it is hard to sit still 0 07/07/2025 9:15 AM Maryam Soriano MA Becoming easily annoyed or irritable 3 07/07/2025 9:15 AM EDT Maryam Garcia MA Feeling afraid as if somethi ng awful might happen 0 07/07/2025 9:15 AM EDT Maryam Garcia MA MUSA-7 Total Score 6 07/07/2025 9:15 AM EDT Maryam Garcia MA documented as of this encounter Progress Notes * Jazmín Nogueira MD - 07/07/2025 9:00 AM EDT SUBJECTIVE: Jael Gates is a 35 y.o. year old female who presents for follow up amenorrhea. Denies recent illness, injury, or hospitalization. Patient seen by [facility] CLINICAL SOCIOLOGIST, she had normal testosterone, estradiol and FSH levels back on March 2025.Her pelvic ultrasound was normal as well. She had provide administered on March 2025 and had her. OnJuly 11 so she finished the Provera. They are working out for PCOS v yes okay s POI, she desires a to be 23.9 Her LMP was 06/22/25, she's off provera, menstruation is somewhat painful. Acute Concerns: Co epigastric pain + nausea + vomiting 4d ago that lasted x 2d, no fever, chills, but feels weak, tired and has kanker sores. She is having soft diet and avoiding greasy foods which has somewhat improved abdominal pain but reports decreased appetite since. No sick contacts. Social History Social History Narrative Not on file Problem List[1] Family History[2] Review of Systems Constitutional: Negative for chills, fatigue and fever. HENT: Negative for congestion, ear pain, nosebleeds, rhinorrhea, sinus pressure, sore throat and trouble swallowing. Eyes: Negative for pain and discharge. Respiratory: Negative for cough, chest tightness and shortness of breath. Cardiovascular: Negative for chest pain, palpitations and leg swelling. Gastrointestinal: Positive for abdominal distention, abdominal pain and nausea. Negative for blood in stool, constipation and diarrhea. Endocrine: Negative for polydipsia and polyuria. Genitourinary: Negative for dysuria, frequency, genital sores, pelvic pain and vaginal discharge. Musculoskeletal: Negative for back pain and neck pain. Skin: Negative for rash. Allergic/Immunologic: Negative for environmental allergies. Neurological: Negative for dizziness, seizures, weakness, light-headedness and headaches. Hematological: Negative for adenopathy. Psychiatric/Behavioral: Negative for agitation, behavioral problems, self-injury and suicidal ideas. OBJECTIVE: Vitals: 07/07/25 0912 BP: 110/70 Pulse: 73 Resp: 21 Temp: 98.4 ??F (36.9 ??C) SpO2: 96% Physical Exam HENT: Right Ear: Tympanic membrane [...] Palpations: Abdomen is soft. Tenderness: There is abdominal tenderness in the epigastric area. There is no right CVA tenderness,left CVA tenderness, guarding or rebound. Negative signs include Waldron's sign and McBurney's sign. Musculoskeletal: General: Normal range of motion. Cervical back: Neck supple. Skin: General: Skin is warm. Neurological: General: No focal deficit present. Mental Status: She is alert and oriented to person, place, and time. Psychiatric: Mood and Affect: Mood normal. Behavior: Behavior normal. Patient Health Questionnaire-9 Score: 24 (07/07/2025 9:14 AM) Patient Health Questionnaire-2 Score: 6 (07/07/2025 9:14 AM) Thoughts that you would be better off or hurting yourself in some way: Not at all (07/07/2025 9:14 AM) Problem List Items Addressed This Visit Other microscopic hematuria - Primary Given associated GI symptoms, I will rule out kidney stones. Order renal ultrasound Advised to increase p.o. fluid intake Relevant Orders US RENAL BI POCT Urinalysis (Completed) POCT Urine (Completed) Gastroesophageal reflux disease Unclear if he was triggered by food or a GI bug. Will order H. pylori and will continue omeprazole on empty stomach x 1 month Advised to avoid greasy and high calorie meals, sodas and alcohol, advised to walk at least 50 minutes after meal and work on weight reduction. Relevant Medications Omeprazole 20 MG tablet delayed-release Other Relevant Orders Helicobacter pylori Antigen, EIA, Stool (Completed) Adjustment disorder with anxiety Relevant Orders Referral to Behavioral Health Infertility associated with anovulation Labs and pelvic ultrasound were fairly normal, she got her period back with Provera by CLINICAL SOCIOLOGIST, she's off it now and having regular periods. Patient will continue will follow-up with CLINICAL SOCIOLOGIST, desires . Relevant Orders POCT Urinalysis (Completed) POCT Urine (Completed) Other Visit Diagnoses Dietary counseling Exercise counseling Epigastric pain Relevant Medications Omeprazole 20 MG tablet delayed-release Other Relevant Orders US RENAL BI Encounter for immunization Relevant Medications acetaminophen (Tylenol Extra Strength) 500 MG tablet Other Relevant Orders TDAP VACCINE 7 yrs + (Completed) HEPLISAV-B VACCINE ADULT 19 yrs + (Completed) Less than 8 weeks gestation of Relevant Medications acetaminophen (Tylenol Extra Strength) 500 MG tablet Other Relevant Orders hCG, Total, Quantitative Follow Up: Medications Ordered Prior to Encounter[3] [1] Patient Active Problem List Diagnosis Endometriosis DUB (dysfunctional uterine bleeding) Amenorrhea Infertility associated with anovulation Gastroesophageal reflux disease Decreased sex drive Other microscopic hematuria Overweight Adjustment disorder with anxiety [2] No family history on file. [3] Current Outpatient Medications on File Prior to Visit Medication Sig Dispense Refill medroxyPROGESTERone (Provera) 10 MG tablet Take 10 mg by mouth Once per day. multivitamin () 27-0.8 MG tablet Take 1 tablet by mouth Once per day. 30 tablet 11 [DISCONTINUED] Omeprazole 20 MG tablet delayed-release Take 1 tablet (20 mg) by mouth before breakfast. 30 tablet 0 No current facility-administered medications on file prior to visit. * Jazmín Nogueira MD - 07/07/2025 9:00 AM EDT Urine test on 07/07 came up positive. I called patient today and discussed results. She tells me that epigastric pain is improve but she has some nausea, otherwise she's doing well. AP/ She was happy with POS results, , will get serum hcg and I will refer to CLINICAL SOCIOLOGIST after quantitative result, probably high risk due to history infertility. She will let [facility] CLINICAL SOCIOLOGIST know re POSresults. We also discussed about red flags with early including vaginal bleeding, fever, UTI sxs, vaginal discharge, URI etc. documented in this encounter Miscellaneous Notes * Assessment & Plan Note - Jazmín Nogueira MD - 07/07/2025 9:42 AM EDT Associated Problem(s): Infertility associated with anovulation Labs and pelvic ultrasound were fairly normal, she got her period back with Provera by CLINICAL SOCIOLOGIST, she's off it now and having regular periods. Patient will continue will follow-up with CLINICAL SOCIOLOGIST, desires . * Assessment & Plan Note [...] Epigastric pain Expected: 07/07/2025 (Approximate), Expires: 07/07/2026 hCG, Total, Quantitative Lab Routine Less than 8 weeks gestation of Expected: 07/12/2025 (Approximate), Expires: 07/12/2026 Scheduled Referrals Name Type Priority Associated Diagnoses Order Schedule Referral to Behavioral Health Outpatient Referral Routine Adjustment disorder with anxiety Expected: 07/12/2025 (Approximate), Expires: 01/04/2027 documented as of this encounter Procedures Procedure Name Priority Date/Time Associated Diagnosis Comments HELICOBACTER PYLORI AG, EIA, STOOL Routine 07/10/2025 12:00 AM EDT Gastroesophageal reflux disease, unspecified whether esophagitis present POCT , URINE Routine 07/07/2025 9:58 AM EDT Other microscopic hematuria Infertility associated with anovulation POCT URINALYSIS DIPSTICK Routine 07/07/2025 9:52 AM EDT Other microscopic hematuria Infertility associated with anovulation documented in this encounter Results * Helicobacter pylori??Antigen, EIA, Stool (07/10/2025 12:00 AM EDT) H pylori Ag Stool SEE NOTE [facility] Comment:HELICOBACTER PYLORI AG, EIA, STOOL Micro Number: [id number] Test Status: Final Specimen Source: Stool Specimen Quality: Adequate H.pylori Ag: Not Detected Antimicrobials, proton pump inhibitors, and bismuth preparations inhibit H. pylori and ingestion up to two weeks prior to testing may cause false negative results. If clinically indicated the test should be repeated on a new specimen obtained two weeks after discontinuing treatment. Reference Range: Not DetectedTHIS TEST WAS PERFORMED AT:[address] [place] [phone] [id number] ELMORE MD Stool Rectal contents / Unknown 07/10/2025 07/10/2025 us Jazmín Nogueira MD LAB BODY FLUIDS AND STOO LS ORDERABLES Final Result [facility] [address] [place] [address] [phone] * (ABNORMAL) POCT Urine (07/07/2025 9:58 AM EDT) Preg Test, Ur Positive (A) Negative, Indeterminate, None Detected, Invalid, Specimen unsatisfactory for evaluation, Weakly Positive, 2+ QC Media Lot # [id number] Lot# Expiration Date [id number] Urine 07/07/2025 9:58 AM EDT Jazmín Nogueira MD POINT OF [...] Gastroesophageal reflux disease, unspecified whether esophagitis present Adjustment disorder with anxiety Dietary counseling Dietary surveillance and counseling Exercise counseling Epigastric pain Abdominal pain, epigastric Infertility associated with anovulation Encounter for immunization Less than 8 weeks gestation of documented in this encounter Additional Health Concerns Assessment Noted Time PHQ-9 Depression Total Score: 24 025 9:14 AM EDT documented as of this encounter Care Teams Electronic Gluing Machine Operator Relationship Specialty Start Date End Date Jazmín Nogueira MD [address] [place] [id number] PCP - General Internal Medicine 12/09/24 documented as of this encounter
--- OUTSIDE RECORDS SUMMARY | 2025-07-12 16:06 | XMS_ITS | Encounter Summary ---
Author Organization [employer] Address [address] [facility] [address] 7t [place] [address] Care Team Providers Care Wardrobe Manager Name Role Phone Jazmín Nogueira MD Primary Care Provider + Encounter Details Date Type Department Care Team (Late st Contact Info) Description 07/10/2025 Orders Only [facility] MEDICINE 230 [place], [place] [phone] Jazmín Nogueira MD [address] [place], [place] [phone] Social History Tobacco Use Types Packs/Day Years [...] PM EDT Narrative 07/10/2025 12:59 PM EDT [place] [address] Ultrasound Report Signed Patient: Jael Martell Candi#: [id number] : 1990 Acct:[id number] Age/Sex: 35 / F ADM Date: 07/10/25 Loc: HO.US Attending Dr: Jazmín Nogueira MD Ordering Physician: Jazmín Nogueira MD Date of Service: 07/10/25 Procedure(s): US renal BI Accession Number(s): [id number] cc: Jazmín Nogueira MD Reason for Exam: [...] 07/10/25 1255 DD/ 1239 TD/TT: 07/10/25 1242 Illusionist: Procedure Note Donotuseinterpreter, Image - 07/10/2025 [place] [address] Ultrasound Report Signed Patient: Jael Martell R#: [id number] : 1990Acct:[id number] Age/Sex: 35 / FADM Date: 07/10/25 Loc: .US Attending Dr: Jazmín Nogueira MD Ordering Physician: Jazmín Nogueira MD Date of Service: 07/10/25 Procedure(s): US renal BI Accession Number(s): [id number] cc: Jazmín Nogueira MD Reason for Exam: [...] 07/10/25 1255 DD/ 1239 TD/TT: 07/10/25 1242 Illusionist: us Jazmín Nogueira MD IMG US PROCEDURES Final Result documented in this encounter Visit Diagnoses Not on filedocumented in this encounter Additional Health Concerns Assessment Noted Time PHQ-9 Depression Total Score: 24 025 9:14 AM EDT documented as of this encounter Care Teams Wardrobe Manager Relationship Specialty Start Date End Date Jazmín Nogueira MD [address] [place] [phone] PCP - General Internal Medicine 12/09/24 documented as of this encounter
--- OUTSIDE RECORDS SUMMARY | 2025-07-12 16:07 | XMS_ITS | Clinical Summary ---
Author Organization [employer] Address [address] [facility] 7t [place] [address] Care Team Providers Care Auto Radiator Specialist Name Role Phone Jazmín Nogueira MD [...] Active Problems Problem Noted Date Diagnosed Date Less than 8 weeks gestation of 025 Other microscopic hematuria 07/07/2025 Assessment & Plan [...] records from previous treatment and follow-up with MOLD CLOSER HELPER. Order CBC and labs and follow-up with your PCP DUB (dysfunctional uterine bleeding) 12/05/2024 Amenorrhea 12/05/2024 Assessment & Plan (02/28/2025 9:29 AM EDT): test is negative Unclear if related to early menopause/?ovarian failure (low FSH?) or PCOS. FU with MOLD CLOSER HELPER next month Assessment & Plan (12/05/2024 3:09 PM EST): test is negative. Space unclear if related to PCOS, she does not have any visualizing fissures. It could be related to endometriosis. Order labs and pelvic ultrasound and follow-up with a new PCP. I will obtain Pap smear report from dentistry done last month. Infertility associated with anovulation 12/05/19 Assessment & Plan (07/12/2025 2:19 PM EDT): Labs and pelvic ultrasound were fairly normal, she got her period back with Provera by MOLD CLOSER HELPER, she's off it now and having regular periods. Patient will continue will follow-up with MOLD CLOSER HELPER, desires . Assessment & Plan (12/05/2024 3:10 PM EST): Ordered labs and pelvic ultrasound, may need referral to MOLD CLOSER HELPER. Needs to follow-up with new PCP first Encounters Date Type Department Care Team Description 07/10/2025 Orders Only [address] [address] Jazmín Nogueira MD 07/07/2025 9:00 AM EDT Office Visit [address] [address] Jazmní Nogueira MD Other microscopic hematuria (Primary Dx); Gastroesophageal reflux disease, unspecified whether esophagitis present; Adjustment disorder with anxiety; Dietary counseling; Exercise counseling; Epigastric pain; Infertility associated with anovulation; Encounter for immunization; Less than 8 weeks gestation of 07/07/2025 Travel 07/06/[address] [address] Jazmín Nogueira MD chart prep 06/29/2025 Patient Outreach [address] [address] Jazmín Nogueira MD Pre-visit Planning (SDOH screening completed on 02/20/2025) 04/25/[address] [address] Jazmín Nogueira MD Nurse Triage 04/24/[address] [address] Jazmín Nogueira MD June recall from Last [...] Cancer Screening 2022 HPV/Cotest 2022 COVID-19 Vaccine ( - 2023-2 5 season) 2025 Influenza Vaccine [...] COMPLETE Routine 07/10/2025 12: 39 PM EDT HELICOBACTER PYLORI AG, EIA, STOOL Routine 07/10/2025 [...] PM EDT Narrative 07/10/2025 12:59 PM EDT [place] [address] Ultrasound Report Signed Patient: Jael Martell R#: [id number] : 1990 Acct:[id number] Age/Sex: 35 / F ADM Date: 07/10/25 Loc: HO.US Attending Dr: Jazmín Nogueira MD Ordering Physician: Jazmín Nogueira MD Date of Service: 07/10/25 Procedure(s): US renal BI Accession Number(s): [id number] cc: Jazmín Nogueira MD Reason for Exam: [...] 07/10/25 1255 DD/ 1239 TD/TT: 07/10/25 1242 China Painter: Procedure Note Donotuseinterpreter, Image - 07/10/2025 [place] [address] Ultrasound Report Signed Patient: Jael Martell R#: [id number] : 1990Acct:[id number] Age/Sex: 35 / FADM Date: 07/10/25 Loc: HO.US Attending Dr: Jazmín Nogueira MD Ordering Physician: Jazmín Nogueira MD Date of Service: 07/10/25 Procedure(s): US renal BI Accession Number(s): [id number] cc: Jazmín Nogueira MD Reason for Exam: [...] 07/10/25 1255 DD/ 1239 TD/TT: 07/10/25 1242 China Painter: Jazmín Nogueira MD IMG US PROCEDURES Final Result * Helicobacter pylori??Antigen, EIA, Stool (07/10/2025 12:00 AM EDT) H pylori Ag Stool SEE NOTE [facility] Comment:HELICOBACTER PYLORI AG, EIA, STOOL Micro Number: [id number] Test Status: Final Specimen Source: Stool Specimen Quality: Adequate H.pylori Ag: Not Detected Antimicrobials, proton pump inhibitors, and bismuth preparations inhibit H. pylori and ingestion up to two weeks prior to testing may cause false negative results. If clinically indicated the test should be repeated on a new specimen obtained two weeks after discontinuing treatment. Reference Range: Not DetectedTHIS TEST WAS PERFORMED AT:[employer] [address] [address]WINNIE ELMORE MD Stool Rectal contents / Unknown 07/10/2025 07/10/2025 Jazmín Nogueira MD LAB BODY FLUIDS AND STOO LS ORDERABLES Final Result [facility] [address] [place] [phone] * (ABNORMAL) POCT Urine (07/07/2025 9:58 AM EDT) Preg Test, Ur Positive (A) Negative, Indeterminate, None Detected, Invalid, Specimen unsatisfactory for evaluation, Weakly Positive, 2+ QC Media Lot # [id number] Lot# Expiration Date ,0 Urine 07/07/2025 9:58 AM EDT Result [facility] Jazmín Nogueira MD POINT OF CARE TEST [...] Date ,026 Urine 07/07/2025 9:52 AM EDT Result [facility] Jazmín Nogueira MD POINT OF CARE TEST ENTER /EDIT ORDERABLES Final Result * Hepatitis Panel, General (12/05/2024 3:44 PM EST) Hepatitis A IgM Nonreactive Nonreactive [facility] Comment:IgM antibodies to MUSTAFA V not detected; does not exclude earlyacute or recovered HAV infection. ~Hepatitis B Surface Antibody NONREACTIVE Nonreactive [facility] Comment:Nonreactive: < 8.00 mIU/mL Hepatitis B Core Antibody Nonreactive Nonreactive [facility] Hepatitis C Antibody Nonreactive Nonreactive [facility] Comment:Antibodies to HCV no t detected; does not exclude early acuteHCV infection. Hepatitis B Surface Ag Negative Negative [facility] Blood 12/05/2024 3:44 PM EST 12/05/2024 5:51 PM EST Result [facility] Jazmín Nogueira MD LAB BLOOD ORDERABLES Fin al Result [facility] [address] [place] [phone] * HIV-1/2 Antigen and Antibodies, Fourth Generation, with Reflexes (12/05/2024 3:44 PM EST) HIV AB/AG Nonreactive Nonreactive [facility] Comment:HIV-1 p24 Ag and/or HIV-1/HIV-2 Ab not detected.A test result that is nonreactive does not exclude thepossibility of exposure to or infection with HIV-1 and/orHIV-2. Nonreactive results in this assay for individualswith prior exposure to HIV-1 and/or HIV-2 may be due toantigen and antibody levels that are below the limit ofdetection of this assay.The [employer] HIV Ag/Ab Combo assay result andsupplemental assay results should be interpreted inconjunction with the patient's clinical presentation,history and other laboratory results. If the results areinconsistent with clinical evidence, additional testing issuggested to confirm the result. Blood Venous blood specimen / Unknown 12/05/2024 3:44 PM EST 12/05/2024 5:51 PM EST Jazmín Nogueira MD LAB BLOOD ORDERABLES Fin al Result Performing Organization Address [facility] Co de Phone Number [facility] [address] [place] [address] [phone] from Last 3 Months or Most Recently Relevant to Health Maintenance Insurance [employer] HSN FULL DENTAL - HSN FULL (MEDICAID) DENTAL-[facility] MEDICAID LIMITED ADULT Care Teams Auto Radiator Specialist Relationship Specialty Start Date End Date Jazmín Nogueira MD [address] [place] [phone] PCP - General Internal Medicine 12/09/24
--- OUTSIDE RECORDS SUMMARY | 2025-07-12 16:07 | XMS_ITS | Clinical Summary ---
Author Organization [facility] Address [address] [place] [address] Care Team Providers Care Physician Asst Name Role Phone Jazmín Nogueira Primary Care Provider [phone] Allergies No known active allergies Medications medroxyPROGESTER one (PROVERA) 10 mg tabletIndication s:Secondary amenorrhea Take 1 tablet (10 mg total) by mouth once a day for 10 days. 10 tablet 04/03/2025 Active vitamin ( PLUS) 27 mg iron- 1 mg tablet Take 1 tablet by mouth once a day. Active Encounters Date Type Department Care Team Description 05/23/2025 10:15 AM EDT Office Visit [facility] Obstetrics and Gynecology [address] [place] [address] Bank Compliance Officer: Tara Hooks NP Encounter for preconception consultation [...] patient's age to complete this topic Insurance [facility] HS/FREE CARE Care Teams Physician Asst Relationship Specialty Start Date End Date Jazmín Nogueira Maria [address] [place] [phone] PCP - General Internal Medicine 12/12/24
--- OUTSIDE RECORDS SUMMARY | 2025-07-12 16:07 | XMS_ITS | Encounter Summary ---
Author Organization [employer] Address [address] 7[address] [place] [address] Care Team Providers Care Cheese Packer Name Role Phone Jazmín Nogueira MD Primary [...] documented as of this encounter Care Teams Cheese Packer Relationship Specialty Start Date End Date Jazmín Nogueira MD [address] [place] [address] PCP - General Internal Medicine 12/09/24 documented as of this encounter
== END 2025-07-12 15:05 | disposition home or self-care (01) ==
LOC: HO.HHCL 15:04
PROVIDERS: PCP Internal Medicine; Visit Provider Internal Medicine
DX: Z3A.01 Less than 8 weeks gestation of pregnancy (principal)
CPT/HCPCS: 36415; 84702